=== PATIENT | female | born 1945 | race Caucasian/White ===

== ENCOUNTER 2019-08-30 13:07 | Inpatient (IN) | payer OTHER ==
[~2019-08-30] VITALS: Ht 165.1 cm; Wt 40.8 kg
[2019-08-30 13:41] VITALS: BP_SYST 120
--- NOTE | 2019-08-30 14:43 | NUR ---
Patient to ER bed 03 to gown for evaluation. Side rails up.
--- NOTE | 2019-08-30 14:45 | NUR ---
pt bib her for SNF placement. Pt's is not able to take care of her any longer. Pt has hx of dementia. AAOx2. in stable condition
--- NOTE | 2019-08-30 15:00 | NUR ---
ER at bedside examining patient.
--- NOTE | 2019-08-30 15:45 | NUR ---
# 22 gauge angiocath placed to RAC. Use of asceptic technique. Opsite placed over site. Blood return noted. Blood for lab drawn from site. Flushed with 10 cc of normal saline. No evidence of infiltration noted. Patient tolerated well.
--- NOTE | 2019-08-30 16:21 | NUR ---
EKG done and given to
[2019-08-30 16:24] LABS: BILIRUBIN,URINE NEGATIVE (NEGATIVE); BLOOD, URINE 3+ (NEGATIVE); CLARITY/URINE CLOUDY (CLEAR); GLUCOSE,URINE NEGATIVE (NEGATIVE); KETONES,URINE NEGATIVE (NEGATIVE); LEUKOCYTE ESTERASE ,URINE 1+ (NEGATIVE); NITRITE, URINE NEGATIVE (NEGATIVE); PH,URINE 7.5 (5.0-8.0); PROTEIN URINE 2+ (NEGATIVE); UROBILINOGEN,URINE 0.2 (0.2-1.0)
[2019-08-30 16:29] LABS: COLOR,URINE YELLOW (YELLOW)
--- NOTE | 2019-08-30 16:30 | NUR ---
pt getting labs drawn at the bedside.
[2019-08-30 16:31] LABS: BASOPHILS % (AUTO) 0.3 % (0.0-2.0); EOSINOPHILS # (AUTO) 0.1 K/uL (0.0-0.4); EOSINOPHILS % (AUTO) 0.9 % (0.0-4.0); HEMATOCRIT 36.5 % (36-48); HEMOGLOBIN 11.9 g/dL (12.0-16.0); LYMPHOCYTES # (AUTO) 1.2 K/uL (1.0-5.5); LYMPHOCYTES % (AUTO) 19.3 % (20.5-51.5); MEAN CORPUSCULAR HEMOGLOBIN 33 pg (27-31); MEAN CORPUSCULAR HGB CONC 33 % (32-36); MEAN CORPUSCULAR VOLUME 100 fL (79.0-98.0); MONOCYTES # (AUTO) 0.6 K/uL (0.0-1.0); MONOCYTES % (AUTO) 9.7 % (1.7-9.3); NEUTROPHILS # (AUTO) 4.2 K/uL (1.8-7.7); NEUTROPHILS % (AUTO) 69.8 % (40.0-70.0); PLATELET COUNT (AUTO) 227 K/uL (130-430); RED BLOOD CELL COUNT(AUTO) 3.64 MIL/uL (4.2-6.2); RED CELL DISTRIBUTION WIDTH 15.7 % (9.0-15.0)
[2019-08-30 16:38] LABS: ANION GAP 11 (5-15); CALCIUM 8.8 mg/dL (8.4-11.0); CHLORIDE 105 mmol/L (98-107); CREATININE 1.07 mg/dL (0.55-1.30); GLUCOSE 117 mg/dL (70-99); POTASSIUM 3.5 mmol/L (3.5-5.1); SODIUM SERUM 142 mmol/L (136-145); UREA NITROGEN, BLOOD 20 mg/dL (8-21)
[2019-08-30 16:39] LABS: BACTERIA,URINE MODERATE /HPF (None Seen); RBC,URINE 50-80 /HPF (0-3)
[2019-08-30 16:40] LABS: MUCUS,URINE None Seen /LPF (None Seen)
[2019-08-30 16:42] LABS: PROTHROMBIN TIME 9.8 SECS (9.5-12.5)
[2019-08-30 16:44] LABS: ALANINE AMINOTRANSFERASE 19 U/L (12-78); ALBUMIN 3.4 g/dL (3.4-4.8); ASPARTATE AMINOTRANSFERASE 24 U/L (10-37); TOTAL BILIRUBIN 0.4 mg/dL (0.0-1.0)
[2019-08-30 16:45] LABS: ACETAMINOPHEN < 1 ug/mL (1-30); ALCOHOL, BLOOD < 3 mg/dL (<10)
[2019-08-30 16:48] LABS: BARBITURATE, URINE NEGATIVE (NEG <=200); BENZODIAZEPINE, URINE NEGATIVE (NEG <=150); CANNABINOID, URINE NEGATIVE (NEG <=50); COCAINE, URINE NEGATIVE (NEG <=150); METHAMPHETAMINES SCREEN,URINE NEGATIVE (NEG <=500); OPIATE, URINE NEGATIVE (NEG <=100); PHENCYCLIDINE SCREEN,URINE NEGATIVE (NEG <=25); UR TRICYCLIC ANTIDEPRESSANTS NEGATIVE (NEG <=300); URINE AMPHETAMINE NEGATIVE (NEG <=500); URINE METHADONE NEGATIVE (NEG <=200); URINE OXYCODONE SCREEN NEGATIVE (NEG <=100); URINE PROPOXYPHENE SCREEN NEGATIVE (NEG <=300)
--- NOTE | 2019-08-30 18:05 | NUR ---
pt will be admitted under the care of Dr. Lorenzana. Orders received.
--- NOTE | 2019-08-30 18:07 | NUR ---
called for a Med Surg bed.
--- NOTE | 2019-08-30 18:25 | NUR ---
Patient will be admitted to care of Dr. Lorenzana. Admitted to med surg unit. Will go to room 113-a. Belongings list completed. Complete and up to date summary report printed. SBAR report to be given at bedside with opportunity for questions. Report given to Stephanie BAPTISTE. IV is on the LAC 22g patent.
--- NOTE | 2019-08-30 18:31 | NUR ---
ADMISSION NOTE Received patient from ER via brian, received report from LANIE BAPTISTE. Patient admitted with diagnosis of ALTERED LEVEL OF CONCIOUSNESS. Patient oriented to hospital routine, call light, toileting and safety-patient verbalized understanding.
[2019-08-30] MEDS ORDERED: PREVAGEN PO (18:43)
[2019-08-30 18:45] VITALS: BP_SYST 157
--- NOTE | 2019-08-30 19:00 | NUR ---
CLOSING NOTE PT AWAKE AND ALERT. PT CONFUSED BUT VERBAL. IV INTACT AND PATENT, NO SIGNS OF INFILTRATION. PT ON ROOM AIR, NO ACUTE DISTRESS NOTED. CLEAR LUNGS. NORMOACTIVE BOWEL SOUNDS. ALL NEEDS MET. BED IN LOWEST AND LOCKED POSITION. AND FRIEND AT BEDSIDE. CALL LIGHT IN REACH. FALL AND ASPIRATION PRECAUTIONS IN PLACE. WILL ENDORSE TO NOC NURSE. Addendum: 08/30/19 at 1940 by Lissett Tang RN PT EATING DINNER, TOLERATING WELL. HOB ELEVATED. NO COUGHING NOTED.
[2019-08-30] MEDS ORDERED: ACETAMINOPHEN 650 MG/20.3 ML UDC GT PRN (19:15)
--- NOTE | 2019-08-30 19:26 | NUR ---
CONSULTATION PAGED/CALLED Reason for Consultation: ALTERED LEVEL OF CONSIOUSNESS Person Who was Notified: TIFFANIE Consulting Physician: / ONCALL Director Of [employer]s Specialty: PSYCH Ordering Physician:
--- NOTE | 2019-08-30 19:32 | NUR ---
CONSULTATION PAGED/CALLED Reason for Consultation: ALOC Person Who was Notified: TIFFANIE Consulting Physician: / ONCSAILAJA [employer] M[employer] Tester Specialty: NEURO Ordering Physician:
[2019-08-30 19:55] VITALS: BP_SYST 147
--- NOTE | 2019-08-30 19:55 | NUR ---
OPENING NOTES Pt alert, awake, oriented to name only. VSS, afebrile. No s/s distress noted. Assisted pt to the bathroom, steady gait. IV R. AC 22 clear and patent. Oriented pt in room and call light use, pt needs reinforcement. Bed low, locked, siderails up x3. Call light within reach. To monitor.
--- NOTE | 2019-08-30 21:30 | NUR ---
Rounds Pt awake and restless. Frequent orientation provided about surroundings and safety. Safety maintained. To monitor.
[2019-08-30 23:18] VITALS: BP_SYST 149
--- NOTE | 2019-08-31 00:20 | NUR ---
Rounds Pt awake, restless and walked out to the station. Oriented pt to place and time and encouraged pt to get some rest. Safety maintained. Bed low, locked, siderails up. To monitor.
--- NOTE | 2019-08-31 03:40 | NUR ---
Rounds Pt asleep no s/s distress noted. Call light within reach. Will continue to monitor.
--- NOTE | 2019-08-31 06:25 | NUR ---
Closing notes/IV restart Pt awake, alert, no s/s distress. IV on right AC pulled out. Re-started IV L. FA 20G via aseptic technique. Good blood return. Pt tolerated well. Call light within reach. Safety maintained. Bed low position, locked, siderails up x3. To endorse to AM nurse.
[2019-08-31 07:58] LABS: BASOPHILS % (AUTO) 0.5 % (0.0-2.0); EOSINOPHILS # (AUTO) 0.2 K/uL (0.0-0.4); EOSINOPHILS % (AUTO) 1.8 % (0.0-4.0); HEMATOCRIT 38.9 % (36-48); HEMOGLOBIN 12.8 g/dL (12.0-16.0); LYMPHOCYTES # (AUTO) 1.9 K/uL (1.0-5.5); LYMPHOCYTES % (AUTO) 19.8 % (20.5-51.5); MEAN CORPUSCULAR HEMOGLOBIN 33 pg (27-31); MEAN CORPUSCULAR HGB CONC 33 % (32-36); MEAN CORPUSCULAR VOLUME 101 fL (79.0-98.0); MONOCYTES # (AUTO) 0.6 K/uL (0.0-1.0); MONOCYTES % (AUTO) 6.6 % (1.7-9.3); NEUTROPHILS # (AUTO) 6.7 K/uL (1.8-7.7); NEUTROPHILS % (AUTO) 71.3 % (40.0-70.0); PLATELET COUNT (AUTO) 203 K/uL (130-430); RED BLOOD CELL COUNT(AUTO) 3.85 MIL/uL (4.2-6.2); RED CELL DISTRIBUTION WIDTH 15.7 % (9.0-15.0); WHITE BLOOD COUNT (AUTO) 9.5 K/uL (4.8-10.8)
[2019-08-31 08:00] VITALS: BP_SYST 143
--- NOTE | 2019-08-31 08:00 | NUR ---
PT AWAKE, BUT APPEARS TO BE PLEASANTLY CONFUSED. ON ROOM AIR. V/S STABLE. INSTRUCTED TO USE CALL LIGHT FOR NEEDS, BED LOCKED AT THE LOWEST POSITION WITH ALARM ON, WILL CONTINUE TO MONITOR.
[2019-08-31 08:36] LABS: ANION GAP 12 (5-15); CALCIUM 8.8 mg/dL (8.4-11.0); CHLORIDE 103 mmol/L (98-107); CREATININE 0.96 mg/dL (0.55-1.30); FREE T4 (FREE THYROXINE) 1.2 ng/dl (0.8-1.5); GLUCOSE 81 mg/dL (70-99); POTASSIUM 3.9 mmol/L (3.5-5.1); SODIUM SERUM 138 mmol/L (136-145); THYROID STIMULATING HORMONE 3.33 uIu/mL (0.36-3.74); UREA NITROGEN, BLOOD 19 mg/dL (8-21)
--- NOTE | 2019-08-31 10:12 | NUR ---
PATIENT IS SEEN ATTEMPTING TO WANDER INTO THE HALLWAY. SHE IS ESCORTED BACK TO BED.
--- NOTE | 2019-08-31 11:40 | NUR ---
PATIENT IS ASSESSED BY DR. SCHUMACHER.
[2019-08-31 12:21] VITALS: BP_SYST 127
--- NOTE | 2019-08-31 14:00 | NUR ---
at bedside. POC is discussed.
--- NOTE | 2019-08-31 16:15 | NUR ---
Patient attempts to ambulate. Patient is redirected back to the bed.
[2019-08-31 16:17] VITALS: BP_SYST 136
--- NOTE | 2019-08-31 18:20 | NUR ---
Patient has a small portion of the dinner, stating that she is not hungry
--- NOTE | 2019-08-31 19:40 | NUR ---
INITIAL NOTES PATIENT IS LAYING IN BED AND STABLE. NO S/S OF RESPIRATORY DISTRESS NOTED. PLAN OF CARE WAS DISCUSSED WITH PATIENT AT THIS TIME. PATIENT UNSUCCESSFULLY DEMONSTRATES USAGE OF CALL LIGHT AT THIS TIME. WILL CONTINUE TO MONITOR. FALL, SAFETY, ASPIRATION, AND RESPIRATORY PRECAUTIONS WILL BE IN PLACE THROUGHOUT THE SHIFT.
[2019-08-31 19:45] VITALS: BP_SYST 141
--- NOTE | 2019-08-31 21:40 | NUR ---
ROUNDING PATIENT AMBULATED TO THE RESTROOM AT THIS TIME. PATIENT TOLERATED WELL. NO S/S OF RESPIRATORY DISTRESS NOTED. PATIENT REPOSITION FOR COMFORT. BED IS LOCKED, ALARMED, AND AT THE LOWEST POSITION. WILL CONTINUE TO MONITOR.
--- NOTE | 2019-08-31 23:40 | NUR ---
ROUNDING PATIENT IS SLEEPING IN BED AND STABLE. NO S/S OF RESPIRATORY DISTRESS NOTED. CALL LIGHT IN REACH. BED IS LOCKED, ALARMED, AND AT THE LOWEST POSITION.
--- NOTE | 2019-09-01 02:00 | NUR ---
ROUNDING PATIENT IS SLEEPING IN BED AND STABLE. NO S/S OF RESPIRATORY DISTRESS NOTED. CALL LIGHT IN REACH. BED IS LOCKED, ALARMED,AND AT THE LOWEST POSITION.
--- NOTE | 2019-09-01 04:10 | NUR ---
ROUNDING PATIENT IS SLEEPING IN BED AND STABLE. NO S/S OF RESPIRATORY DISTRESS NOTED. CALL LIGHT IN REACH. BED IS LOCKED, ALARMED,AND AT THE LOWEST POSITION.
[2019-09-01 05:30] VITALS: BP_SYST 127
--- NOTE | 2019-09-01 06:17 | NUR ---
CLOSING NOTES PATIENT IS LAYING IN BED AND STABLE. NO S/S OF RESPIRATORY DISTRESS NOTED. CALL LIGHT IN REACH. BED IS LOCKED, ALARMED, AND AT THE LOWEST POSITION. FALL, SAFETY, ASPIRATION, AND RESPIRATORY PRECAUTIONS HAS BEEN IN PLACE THROUGHOUT THE SHIFT. WILL CONTINUE TO MONITOR UNTIL REPORT IS GIVEN TO AM NURSE BY BEDSIDE.
--- NOTE | 2019-09-01 06:46 | NUR ---
Nutrition Update Torsten Scale 17 noted. Pt admitted for ALOC Diet: Regular BMI: 15 kg/m2 RD to follow per nutrition care standards.
--- NOTE | 2019-09-01 08:00 | NUR ---
RECEIVED AWAKE AND VERY CONFUSED TO PLACE AND REASON FOR HOSP AND REORIENTED.NO C/O DISCOMFORT VSS.RESP EVEN AND UNLABORED TAKES DIET WELL CONTINUE TO MONITOR AND REORIENT PRN
[2019-09-01 12:30] VITALS: BP_SYST 142
[2019-09-01] MEDS ORDERED: cefTRIAXone 1 GM in D5W 50 ML IV SCH (13:30)
--- NOTE | 2019-09-01 13:46 | NUR ---
SS NOTES: MID[employer] ARCHITECT was referred by CM to see patient for DCPA. Pt is a 74 y/o female who came in via ED for ALOC, S/P fall. Pt appears to be well groomed, cooperative with normal mood. Speech was normal and average eye contact. Pt responds to name, but is not oriented to person, place, time or situation. Pt's thought process were loose, when asked about ADL's, pt responds about something not related. Pt states she lives with her and is dependent on her wheelchair to get around. Pt's spouse fixes meals for them and helps her with bathing. Pt lives in a one anahi home with 4 steps to get to the front door but has a ramp. Pt denies any history of mental health or substance use. [employer] ARCHITECT attempted to phone spouse, Dru for collateral; phone was busy. No other identified needs at this time, but [employer] ARCHITECT will remain available when needed.
--- NOTE | 2019-09-01 13:58 | NUR ---
Nutrition Assessment (short note d/t high patient load) Admit Dx: GÉNESIS Stack- JASE reviewed pt's current EMR including diet Hx, physician notes, nursing notes, pertinent labs/meds/procedures, care trends and care activity. RD Notification received for 14-23# wt loss in 3 months. Pt seen resting in bed, covered in blankets, reading a book. Pt is pleasant but does not seem able to provide any nutrition history. Appeared w/ poor concentration. Per RN notes, pt w/ cognitive deficits and is not eating much. Pt appeared emaciated, and may benefit from ONS for wt gain promotion and megace to stimulate appetite. No pressure injury noted, no open wounds. Education is not appropriate. Current Diet Order: Regular diet x 1 day Ht: 5'5/ 65 inches Wt: 90#/ 41 kg BMI: 15 kg/m2 (underweight) %IBW: 72 IBW: 125#/ 57 kg ESTIMATED NUTRITIONAL REQUIREMENTS CALORIES/DAY: 1230 kcal/day (30 kcal/kg CBW for gradual wt gain promotion) PROTEIN/DAY: 41-62 gm/day (1-1.5 gm/kg CBW for gradual wt gain promotion) FLUID/DAY: 1.2 l/day (30ml/kg CBW for maintenance) D: 1. Underweight r/t mental status AEB 72% IBW, BMI 15 kg/m2 and confusion. 2. Increased risk for malnutrition r/t chronic Dz AEB dementia and 14-23# wt loss in 3 months. I: Recommend: regular diet w/ Ensure Enlive TID. ONS will provide additional 1050 kcal and 60 gm protein daily. Recommend Megace to stimulate appetite. M: Monitor appetite and PO intake w/ goal of pt meeting at least 75% of estimated nutritional needs, labs trending WNL, normal GI function, skin integrity/wt maintenance. E: RD to F/U within 2-3 days JASE AGUILERA
--- NOTE | 2019-09-01 14:11 | NUR ---
Dietitian Recommendation Recommend: regular diet w/ Ensure Enlive TID. ONS will provide additional 1050 kcal and 60 gm protein daily. Recommend Megace to stimulate appetite. Please see Nutritional Assessment for details. JASE AGUILERA
--- NOTE | 2019-09-01 15:01 | NUR ---
Discharge Planning: [facility] has faxed dc planning order and packet to [facility] ([phone] f.[phone]). [facility] spoke with [facility] who states that pt's information is under review.
[2019-09-01 16:46] VITALS: BP_SYST 136
--- NOTE | 2019-09-01 18:45 | NUR ---
remains with periods of confusion as to reason for being in hospital and reoriented prn.no c/o pain and vss taking diet well and resp even and unlabored continue to monitor for safety.call rowe in place
--- NOTE | 2019-09-01 19:22 | NUR ---
report to night monitor rn given
--- NOTE | 2019-09-01 19:30 | NUR ---
Pt is resting quietly in bed and eating dinner. Pt's is visiting at the bedside. Pt denies pain or discomfort. Saline lock in LFA is without any signs of infiltration. Call light is with pt and bed alarm is on.
[2019-09-01 20:00] VITALS: BP_SYST 130
[2019-09-01] MEDS ORDERED: DONEPEZIL HCL 5 MG TABLET (ARICEPT) PO SCH (21:00)
--- NOTE | 2019-09-01 21:30 | NUR ---
Scheduled HS medication given po. No c/o pain or discomfort. Fall and safety precautions are in place.
--- NOTE | 2019-09-01 23:15 | NUR ---
Pt was seen wandering around in her room and was redirected to her bed. Pt is oriented to her name only. No c/o pain or discomfort. Fall and safety precautions are in place.
--- NOTE | 2019-09-02 01:00 | NUR ---
Pt is sleeping comfortably in bed. Fall and safety precautions are in place.
--- NOTE | 2019-09-02 03:22 | NUR ---
Pt is sleeping without any respiratory distress noted. Call light is with pt and bed alarm is on. Pt's room is across from Nurses' Station.
--- NOTE | 2019-09-02 05:38 | NUR ---
Pt is sleeping comfortably in bed. Saline lock is intact in LFA. Fall and safety precautions are in place.
--- NOTE | 2019-09-02 06:28 | NUR ---
Pt is awake and resting comfortably in bed. Saline lock is intact in LFA. Fall and safety precautions are in place. Will endorse to day shift nurse.
[2019-09-02 08:00] VITALS: BP_SYST 109
--- NOTE | 2019-09-02 10:41 | NUR ---
DC Planning: Received bed assignment from [facility] to [facility] , RN to report # [phone]. Trying to call spouse/Dru but phone line is busy. -- I will try again to notify [facility] acceptance and get agreeable for the transfer. --OLIVA Garcia made aware.
[2019-09-02 11:39] VITALS: BP_SYST 126
--- NOTE | 2019-09-02 12:07 | NUR ---
Spoke with [facility], explained that we do not have an order for them to take patient, patient will be discharged to [facility]. Spoke with Dru, the patients , he was ok with her being discharged within an hour to the facility. Per stephanie, the patient will be picked up by ambulance after lunch. Pt can be reached at [phone]. Ravinder BAPTISTE
[2019-09-02 12:36] VITALS: BP_SYST 104
--- NOTE | 2019-09-02 13:31 | NUR ---
Discharge Planning: DCP arrange transportation with [facility] ([phone]) 2:15pm P/U DCP made [facility] aware . Patient nurse at lunch.
== END 2019-09-02 14:20 | DRG 689 ==
LOC: SED 13:07 → STU 17:52 → SMU 18:31
PROVIDERS: ADMIT Internal Medicine; ATTEND Internal Medicine
DX: N39.0 Urinary tract infection, site not specified (principal); G93.41 Metabolic encephalopathy; F05 Delirium due to known physiological condition; D64.9 Anemia, unspecified; F03.90 Unspecified dementia, unspecified severity, without behavioral disturbance, psychotic disturbance, mood disturbance, and anxiety; R31.9 Hematuria, unspecified; Z79.899 Other long term (current) drug therapy
CPT/HCPCS: 36415; 70450-TC; 71045; 80048; 80053; 80307; 81000-TC; 82550-TC; 82607; 84439; 84443-TC; 84484; 85025; 85610-TC; 85730-TC; 86592; 87086; 93005; 99285; G0480; G0481; G0482; J0696; J7060

== ENCOUNTER 2022-03-26 18:22 | Inpatient (IN) | payer OTHER ==
[~2022-03-26] VITALS: Ht 170.2 cm; Wt 64.4 kg
[~2022-03-26 18:22] MED LIST: ACET325T PO; DOCU-144 PO; MEGE400O4 PO; PREVAGEN PO
[2022-03-26 18:25] VITALS: BP_SYST 162; BP_SYST 178
[2022-03-26] MEDS ORDERED: INSU100V42 (18:45)
[2022-03-26] MEDS ORDERED: ASCO500T20 PO (18:45)
[2022-03-26] MEDS ORDERED: BISA5TAB10 PR (18:45)
[2022-03-26] MEDS ORDERED: LOSA50TA3 PO (18:45)
[2022-03-26] MEDS ORDERED: SACC250C3 PO (18:45)
[2022-03-26] MEDS ORDERED: METR-154 PO (18:45)
[2022-03-26] MEDS ORDERED: UTI-STAT PO (18:45)
[2022-03-26] MEDS ORDERED: RIVA10TA PO (18:45)
[2022-03-26 19:19] LABS: BASOPHILS # (AUTO) 0.1 K/uL (0.0-0.2); BASOPHILS % (AUTO) 0.9 % (0.0-2.0); EOSINOPHILS # (AUTO) 0.3 K/uL (0.0-0.4); HEMATOCRIT 26.8 % (36-48); HEMOGLOBIN 8.9 g/dL (12.0-16.0); LYMPHOCYTES # (AUTO) 1.2 K/uL (1.0-5.5); LYMPHOCYTES % (AUTO) 12.1 % (20.5-51.5); MEAN CORPUSCULAR HEMOGLOBIN 31 pg (27-31); MEAN CORPUSCULAR HGB CONC 33 % (32-36); MEAN CORPUSCULAR VOLUME 94 fL (79.0-98.0); MONOCYTES # (AUTO) 0.6 K/uL (0.0-1.0); MONOCYTES % (AUTO) 6.3 % (1.7-9.3); NEUTROPHILS # (AUTO) 7.6 K/uL (1.8-7.7); NEUTROPHILS % (AUTO) 77.7 % (40.0-70.0); PLATELET COUNT (AUTO) 405 K/uL (130-430); RED BLOOD CELL COUNT(AUTO) 2.86 MIL/uL (4.2-6.2); RED CELL DISTRIBUTION WIDTH 16.3 % (9.0-15.0); WHITE BLOOD COUNT (AUTO) 9.7 K/uL (4.8-10.8)
[2022-03-26] MEDS ORDERED: cefTRIAXone 1 GM IVPB PREMIX 50 ML IV ONE (19:30)
[2022-03-26 19:40] LABS: ANION GAP 9 (5-15); CALCIUM 8.7 mg/dL (8.4-11.0); CHLORIDE 114 mmol/L (98-107); GLUCOSE 92 mg/dL (70-99); POTASSIUM 4.2 mmol/L (3.5-5.1); UREA NITROGEN, BLOOD 32 mg/dL (8-21)
[2022-03-26 19:40] LABS: BILIRUBIN,URINE NEGATIVE (NEGATIVE); BLOOD, URINE 3+ (NEGATIVE); CLARITY/URINE SL CLOUDY (CLEAR); COLOR,URINE YELLOW (YELLOW); GLUCOSE,URINE NEGATIVE (NEGATIVE); KETONES,URINE NEGATIVE (NEGATIVE); LEUKOCYTE ESTERASE ,URINE 3+ (NEGATIVE); NITRITE, URINE NEGATIVE (NEGATIVE); PROTEIN URINE 1+ (NEGATIVE); UROBILINOGEN,URINE 0.2 (0.2-1.0)
[2022-03-26 19:43] LABS: INR 1.2 (0.8-1.2); PROTHROMBIN TIME 12.7 SECS (9.5-12.5)
[2022-03-26 19:49] LABS: ALANINE AMINOTRANSFERASE 44 U/L (12-78); ALBUMIN 1.8 g/dL (3.4-4.8); ASPARTATE AMINOTRANSFERASE 37 U/L (10-37); LIPASE 98 U/L (73-393); TOTAL BILIRUBIN 0.1 mg/dL (0.0-1.0)
[2022-03-26] MEDS ORDERED: LABETALOL HCL 20 MG/4 ML CARTRIDGE IVP ONE (20:15)
[2022-03-26 20:20] LABS: BACTERIA,URINE None Seen /HPF (None Seen); RBC,URINE 80-100 /HPF (0-3); WBC,URINE >100 /HPF (0-3)
[2022-03-26 20:21] LABS: MUCUS,URINE None Seen /LPF (None Seen)
[2022-03-26] MEDS ORDERED: NS 500 ML IV ONE (21:15)
[2022-03-26] MEDS ORDERED: BISACODYL 5 MG TABLET.DR (DULCOLAX) PO PRN (21:30)
[2022-03-26] MEDS: NACL 0.9% 1,000 ML IV SCH (21:30)
[2022-03-26] MEDS ORDERED: LOSARTAN POTASSIUM 50 MG TABLET (COZAAR) PO SCH (21:30)
[2022-03-27 01:00] VITALS: BP_SYST 152
[2022-03-27 04:00] VITALS: BP_SYST 150
[2022-03-27 07:00] LABS: BASOPHILS % (AUTO) 0.4 % (0.0-2.0); EOSINOPHILS # (AUTO) 0.3 K/uL (0.0-0.4); EOSINOPHILS % (AUTO) 3.4 % (0.0-4.0); HEMATOCRIT 24.7 % (36-48); HEMOGLOBIN 8.5 g/dL (12.0-16.0); LYMPHOCYTES # (AUTO) 1.2 K/uL (1.0-5.5); LYMPHOCYTES % (AUTO) 12.2 % (20.5-51.5); MEAN CORPUSCULAR HEMOGLOBIN 32 pg (27-31); MEAN CORPUSCULAR HGB CONC 35 % (32-36); MEAN CORPUSCULAR VOLUME 94 fL (79.0-98.0); MONOCYTES # (AUTO) 0.6 K/uL (0.0-1.0); MONOCYTES % (AUTO) 6.6 % (1.7-9.3); NEUTROPHILS # (AUTO) 7.3 K/uL (1.8-7.7); NEUTROPHILS % (AUTO) 77.4 % (40.0-70.0); PLATELET COUNT (AUTO) 354 K/uL (130-430); RED BLOOD CELL COUNT(AUTO) 2.64 MIL/uL (4.2-6.2); RED CELL DISTRIBUTION WIDTH 15.9 % (9.0-15.0); WHITE BLOOD COUNT (AUTO) 9.4 K/uL (4.8-10.8)
[2022-03-27 08:10] LABS: ALANINE AMINOTRANSFERASE 36 U/L (12-78); ALBUMIN 1.7 g/dL (3.4-4.8); ANION GAP 10 (5-15); ASPARTATE AMINOTRANSFERASE 33 U/L (10-37); CALCIUM 8.6 mg/dL (8.4-11.0); CHLORIDE 117 mmol/L (98-107); CREATININE 1.69 mg/dL (0.55-1.30); GLUCOSE 84 mg/dL (70-99); POTASSIUM 4.2 mmol/L (3.5-5.1); TOTAL BILIRUBIN 0.2 mg/dL (0.0-1.0); UREA NITROGEN, BLOOD 30 mg/dL (8-21)
[2022-03-27] MEDS ORDERED: SACCHAROMYCES BOULARDII 250 MG CAPSULE (FLORASTOR) PO SCH (09:00)
[2022-03-27] MEDS ORDERED: cefTRIAXone 1 GM in D5W 50 ML IV SCH (09:00)
[2022-03-27] MEDS ORDERED: [UNRECOGNIZED DRUG - OTHER] PO SCH (09:00)
[2022-03-27] MEDS ORDERED: RIVAROXABAN 10 MG TABLET PO SCH (09:00)
[2022-03-27] MEDS ORDERED: ASCORBIC ACID 500 MG TABLET PO SCH (09:00)
[2022-03-27] MEDS ORDERED: MEGESTROL ACETATE 400 MG/10 ML UDC PO SCH (09:00)
[2022-03-27] MEDS: ASCORBIC ACID 500 MG TABLET PO SCH (09:16)
[2022-03-27] MEDS: LACTOBACILLUS RHAMNOSUS GG 1 CAP CAPSULE PO SCH ×2 (09:17→22:35)
[2022-03-27] MEDS: amLODIPine BESYLATE 5 MG TABLET PO SCH (09:17)
[2022-03-27] MEDS: metroNIDAZOLE 500 MG TABLET PO SCH ×2 (09:18→14:33)
[2022-03-27] MEDS: LOSARTAN POTASSIUM 50 MG TABLET (COZAAR) PO SCH ×2 (09:18→22:37)
[2022-03-27] MEDS: RIVAROXABAN 10 MG TABLET PO SCH (09:18)
[2022-03-27] MEDS: MEGESTROL ACETATE 400 MG/10 ML UDC PO SCH ×2 (09:20→22:36)
[2022-03-27] MEDS: DOCUSATE SODIUM 100 MG CAPSULE PO SCH ×2 (09:22→22:35)
[2022-03-27 11:30] VITALS: BP_SYST 141
[2022-03-27] MEDS: cefTRIAXone 1 GM in D5W 50 ML IV SCH (12:38)
[2022-03-27 15:53] VITALS: BP_SYST 151
[2022-03-27 20:00] VITALS: BP_SYST 158
[2022-03-27] MEDS: NACL 0.9% 1,000 ML IV SCH (22:39)
[2022-03-27] MEDS: metroNIDAZOLE 500 mg/NS 100 ML IV SCH (22:40)
[2022-03-28] VITALS: BP_SYST 154
[2022-03-28 04:26] VITALS: BP_SYST 125
[2022-03-28] MEDS: metroNIDAZOLE 500 mg/NS 100 ML IV SCH ×3 (05:19→22:18)
[2022-03-28 07:22] LABS: BASOPHILS % (AUTO) 0.3 % (0.0-2.0); EOSINOPHILS # (AUTO) 0.3 K/uL (0.0-0.4); EOSINOPHILS % (AUTO) 2.7 % (0.0-4.0); HEMATOCRIT 25.9 % (36-48); HEMOGLOBIN 9.2 g/dL (12.0-16.0); LYMPHOCYTES # (AUTO) 0.8 K/uL (1.0-5.5); LYMPHOCYTES % (AUTO) 8.4 % (20.5-51.5); MEAN CORPUSCULAR HEMOGLOBIN 33 pg (27-31); MEAN CORPUSCULAR HGB CONC 35 % (32-36); MEAN CORPUSCULAR VOLUME 93 fL (79.0-98.0); MONOCYTES # (AUTO) 0.6 K/uL (0.0-1.0); MONOCYTES % (AUTO) 6.3 % (1.7-9.3); NEUTROPHILS # (AUTO) 8.3 K/uL (1.8-7.7); NEUTROPHILS % (AUTO) 82.3 % (40.0-70.0); PLATELET COUNT (AUTO) 365 K/uL (130-430); RED BLOOD CELL COUNT(AUTO) 2.79 MIL/uL (4.2-6.2); RED CELL DISTRIBUTION WIDTH 15.9 % (9.0-15.0); WHITE BLOOD COUNT (AUTO) 10.1 K/uL (4.8-10.8)
[2022-03-28 07:36] LABS: ANION GAP 10 (5-15); CALCIUM 8.4 mg/dL (8.4-11.0); CHLORIDE 118 mmol/L (98-107); CREATININE 1.61 mg/dL (0.55-1.30); GLUCOSE 85 mg/dL (70-99); UREA NITROGEN, BLOOD 29 mg/dL (8-21)
[2022-03-28 08:00] VITALS: BP_SYST 128
[2022-03-28 09:00] LABS: TOTAL IRON BIND. CAPACITY 215 ug/dL (250-450)
[2022-03-28] MEDS: MEGESTROL ACETATE 400 MG/10 ML UDC PO SCH ×2 (09:12→22:17)
[2022-03-28] MEDS: DOCUSATE SODIUM 100 MG CAPSULE PO SCH ×2 (09:12→22:17)
[2022-03-28] MEDS: ASCORBIC ACID 500 MG TABLET PO SCH (09:13)
[2022-03-28] MEDS: amLODIPine BESYLATE 5 MG TABLET PO SCH (09:13)
[2022-03-28] MEDS: LACTOBACILLUS RHAMNOSUS GG 1 CAP CAPSULE PO SCH ×2 (09:13→22:19)
[2022-03-28] MEDS: cefTRIAXone 1 GM in D5W 50 ML IV SCH (09:14)
[2022-03-28] MEDS: RIVAROXABAN 10 MG TABLET PO SCH (09:14)
[2022-03-28] MEDS: LOSARTAN POTASSIUM 50 MG TABLET (COZAAR) PO SCH ×2 (09:14→22:17)
[2022-03-28 12:00] VITALS: BP_SYST 95
[2022-03-28] MEDS: NACL 0.9% 1,000 ML IV SCH ×2 (13:25→14:01)
[2022-03-28 16:00] VITALS: BP_SYST 105
[2022-03-28 20:00] VITALS: BP_SYST 158
[2022-03-29] VITALS (8 sets, daily range): BP systolic 102–175
[2022-03-29] MEDS ORDERED: hydrALAZINE HCL 20 MG/ML VIAL IVP PRN (03:00)
[2022-03-29] MEDS: NACL 0.9% 1,000 ML IV SCH ×2 (03:27→17:03)
[2022-03-29] MEDS: metroNIDAZOLE 500 mg/NS 100 ML IV SCH ×3 (05:36→21:06)
[2022-03-29 07:07] LABS: FOLATE (FOLIC ACID) 18.2 ng/mL (>3.0)
[2022-03-29] MEDS: MEGESTROL ACETATE 400 MG/10 ML UDC PO SCH ×2 (08:34→21:04)
[2022-03-29] MEDS: ASCORBIC ACID 500 MG TABLET PO SCH (08:35)
[2022-03-29] MEDS: LOSARTAN POTASSIUM 50 MG TABLET (COZAAR) PO SCH ×2 (08:35→21:05)
[2022-03-29] MEDS: LACTOBACILLUS RHAMNOSUS GG 1 CAP CAPSULE PO SCH ×2 (08:36→21:05)
[2022-03-29] MEDS: amLODIPine BESYLATE 5 MG TABLET PO SCH (08:36)
[2022-03-29] MEDS: RIVAROXABAN 10 MG TABLET PO SCH (08:37)
[2022-03-29] MEDS: DOCUSATE SODIUM 100 MG CAPSULE PO SCH ×2 (08:41→21:05)
[2022-03-29] MEDS: cefTRIAXone 1 GM in D5W 50 ML IV SCH (09:03)
[2022-03-30] VITALS (7 sets, daily range): BP systolic 110–170
[2022-03-30] MEDS: metroNIDAZOLE 500 mg/NS 100 ML IV SCH ×3 (05:34→22:00)
[2022-03-30 07:57] LABS: BASOPHILS % (AUTO) 0.4 % (0.0-2.0); EOSINOPHILS # (AUTO) 0.1 K/uL (0.0-0.4); EOSINOPHILS % (AUTO) 0.8 % (0.0-4.0); HEMATOCRIT 30.3 % (36-48); HEMOGLOBIN 10.2 g/dL (12.0-16.0); LYMPHOCYTES # (AUTO) 0.9 K/uL (1.0-5.5); LYMPHOCYTES % (AUTO) 7.4 % (20.5-51.5); MEAN CORPUSCULAR HEMOGLOBIN 31 pg (27-31); MEAN CORPUSCULAR HGB CONC 34 % (32-36); MEAN CORPUSCULAR VOLUME 93 fL (79.0-98.0); MONOCYTES # (AUTO) 0.6 K/uL (0.0-1.0); MONOCYTES % (AUTO) 5.3 % (1.7-9.3); NEUTROPHILS # (AUTO) 10.5 K/uL (1.8-7.7); NEUTROPHILS % (AUTO) 86.1 % (40.0-70.0); PLATELET COUNT (AUTO) 433 K/uL (130-430); RED BLOOD CELL COUNT(AUTO) 3.26 MIL/uL (4.2-6.2); RED CELL DISTRIBUTION WIDTH 16.5 % (9.0-15.0); WHITE BLOOD COUNT (AUTO) 12.1 K/uL (4.8-10.8)
[2022-03-30] MEDS: LOSARTAN POTASSIUM 50 MG TABLET (COZAAR) PO SCH ×2 (09:00→20:52)
[2022-03-30 09:44] LABS: ANION GAP 16 (5-15); CALCIUM 9.1 mg/dL (8.4-11.0); CHLORIDE 117 mmol/L (98-107); CREATININE 1.58 mg/dL (0.55-1.30); GLUCOSE 102 mg/dL (70-99); POTASSIUM 3.6 mmol/L (3.5-5.1); UREA NITROGEN, BLOOD 23 mg/dL (8-21)
[2022-03-30] MEDS: cefTRIAXone 1 GM in D5W 50 ML IV SCH (09:53)
[2022-03-30] MEDS: MEGESTROL ACETATE 400 MG/10 ML UDC PO SCH ×2 (09:53→20:51)
[2022-03-30] MEDS: DOCUSATE SODIUM 100 MG CAPSULE PO SCH ×2 (09:53→20:50)
[2022-03-30] MEDS: ASCORBIC ACID 500 MG TABLET PO SCH (09:54)
[2022-03-30] MEDS: LACTOBACILLUS RHAMNOSUS GG 1 CAP CAPSULE PO SCH ×2 (09:54→20:51)
[2022-03-30] MEDS: amLODIPine BESYLATE 5 MG TABLET PO SCH (09:54)
[2022-03-30] MEDS: RIVAROXABAN 10 MG TABLET PO SCH (09:55)
== END 2022-03-31 00:49 | DRG 70 ==
LOC: SED 18:22 → SMU 21:45
PROVIDERS: ADMIT Internal Medicine; ATTEND Internal Medicine
DX: G93.41 Metabolic encephalopathy (principal); E43 Unspecified severe protein-calorie malnutrition; N17.0 Acute kidney failure with tubular necrosis; N39.0 Urinary tract infection, site not specified; I16.0 Hypertensive urgency; E86.0 Dehydration; F03.90 Unspecified dementia, unspecified severity, without behavioral disturbance, psychotic disturbance, mood disturbance, and anxiety; D64.9 Anemia, unspecified; R13.10 Dysphagia, unspecified; E11.51 Type 2 diabetes mellitus with diabetic peripheral angiopathy without gangrene; Z20.822 Contact with and (suspected) exposure to COVID-19; I10 Essential (primary) hypertension; Z68.22 Body mass index [BMI] 22.0-22.9, adult
CPT/HCPCS: 36415; 36600; 70450-TC; 71045; 76376; 80048; 80053; 81000; 82607; 82728; 82746; 82803-TC; 83540; 83550; 83605; 83690; 83735; 83880; 84484; 85025; 85610-TC; 85730-TC; 87040; 87081; 87086; 93005; 96365; 96375; 99285; J0360; J0696; J3490; J7060

== ENCOUNTER 2022-04-03 17:57 | Inpatient (IN) | payer OTHER ==
[~2022-04-03] VITALS: Ht 170.2 cm; Wt 75.4 kg
[~2022-04-03 17:57] MED LIST changes: -ACET325T PO; +ASCO500T20 PO; +BISA5TAB10 PR; +ETOMIDATE 20 MG/ 10 ML VIAL (AMIDATE) ONE; +INSU100V42; +LOSA50TA3 PO; +METR-154 PO; -PREVAGEN PO; +RIVA10TA PO; +SACC250C3 PO; +SUCCINYLCHOLINE CHLORIDE 20 MG/ML(QUELICIN) ONE; +UTI-STAT PO
[2022-04-03 18:02] VITALS: BP_SYST 92
[2022-04-03] MEDS ORDERED: PIPERACILLIN/TAZO 3.375 GM in NS 50 ML IV ONE (18:30)
[2022-04-03] MEDS ORDERED: NACL 0.9% 1,000 ML IV ONE (18:30)
[2022-04-03] MEDS ORDERED: PIPERACILLIN/TAZOBACTAM 3.375 GM/VIAL (ZOSYN) IV ONE (18:41)
[2022-04-03] MEDS ORDERED: SUCCINYLCHOLINE CHLORIDE 20 MG/ML(QUELICIN) IVP ONE (18:45)
[2022-04-03] MEDS ORDERED: ETOMIDATE 20 MG/ 10 ML VIAL (AMIDATE) IVP ONE (18:45)
[2022-04-03] MEDS ORDERED: PROPOFOL DRIP 100 ML IV ONE ×2 (19:24→19:30)
[2022-04-03] MEDS ORDERED: MEROPENEM 1 GM IVPB PREMIX 50 ML IV ONE (19:30)
[2022-04-03] MEDS ORDERED: VANCOMYCIN HCL 1,000 MG in NS 250 ML IV ONE (19:30)
[2022-04-03 19:32] LABS: HEMATOCRIT 31.7 % (36-48); HEMOGLOBIN 9.6 g/dL (12.0-16.0); MEAN CORPUSCULAR HEMOGLOBIN 30 pg (27-31); MEAN CORPUSCULAR HGB CONC 30 % (32-36); MEAN CORPUSCULAR VOLUME 100 fL (79.0-98.0); PLATELET COUNT (AUTO) 417 K/uL (130-430); RED BLOOD CELL COUNT(AUTO) 3.18 MIL/uL (4.2-6.2); RED CELL DISTRIBUTION WIDTH 20.4 % (9.0-15.0); WHITE BLOOD COUNT (AUTO) 24.9 K/uL (4.8-10.8)
[2022-04-03 19:50] LABS: ANION GAP 12 (5-15); CALCIUM 9.4 mg/dL (8.4-11.0); GLUCOSE 134 mg/dL (70-99); UREA NITROGEN, BLOOD 42 mg/dL (8-21)
[2022-04-03 19:51] LABS: BAND % (MANUAL) 10 % (0-6); BASOPHILS % (MANUAL) 0 % (0-2); EOSINOPHILS % (MANUAL) 3 % (0-7); LYMPHOCYTES % (MANUAL) 24 % (20-46); METAMYELOCYTES % 1 % (0-0); MONOCYTES % (MANUAL) 3 % (0-11)
[2022-04-03 19:56] LABS: ALANINE AMINOTRANSFERASE 42 U/L (12-78); ALBUMIN 2.1 g/dL (3.4-4.8); ASPARTATE AMINOTRANSFERASE 49 U/L (10-37); TOTAL BILIRUBIN 0.3 mg/dL (0.0-1.0)
[2022-04-03 20:03] LABS: CHLORIDE 120 mmol/L (98-107)
[2022-04-03 20:05] LABS: POTASSIUM 6.3 mmol/L (3.5-5.1)
[2022-04-03] MEDS ORDERED: VANCOMYCIN HCL 1000 MG/VIAL IV ONE (20:06)
[2022-04-03] MEDS ORDERED: DEXTROSE 50% JECT 50 ML DISP.SYRIN IVP ONE (20:15)
[2022-04-03] MEDS ORDERED: INSULIN REGULAR, HUMAN 10 UNITS/0.1 ML, 3 ML VIAL IVP ONE (20:15)
[2022-04-03] MEDS ORDERED: SODIUM POLYSTYRENE SULFONATE 15 GM/60 ML UDBTL NG ONE (20:15)
[2022-04-03] MEDS ORDERED: MEROPENEM 1 GM VIAL IV ONE (20:54)
[2022-04-03 21:00] VITALS: BP_SYST 117
[2022-04-03 21:09] LABS: BILIRUBIN,URINE NEGATIVE (NEGATIVE); BLOOD, URINE 3+ (NEGATIVE); CLARITY/URINE CLOUDY (CLEAR); COLOR,URINE RED (YELLOW); GLUCOSE,URINE NEGATIVE (NEGATIVE); KETONES,URINE NEGATIVE (NEGATIVE); LEUKOCYTE ESTERASE ,URINE 3+ (NEGATIVE); NITRITE, URINE NEGATIVE (NEGATIVE); PROTEIN URINE 2+ (NEGATIVE); UROBILINOGEN,URINE 0.2 (0.2-1.0)
[2022-04-03 21:11] LABS: BACTERIA,URINE MODERATE /HPF (None Seen); MUCUS,URINE None Seen /LPF (None Seen); RBC,URINE >100 /HPF (0-3); WBC,URINE 80-100 /HPF (0-3)
[2022-04-03] MEDS ORDERED: D5/0.45 NS 1,000 ML IV SCH (21:15)
[2022-04-03 21:30] VITALS: BP_SYST 99
[2022-04-03] MEDS ORDERED: LevALBUTEROL HCL 1.25 MG/0.5 ML *CONC.* VIAL.NEB (XOPENEX CONC.) INH PRN (21:45)
[2022-04-03] MEDS ORDERED: ACETAMINOPHEN 650 MG/20.3 ML UDC NG PRN (21:45)
[2022-04-03] MEDS ORDERED: LORazepam 2 MG/ML VIAL IVP PRN (21:45)
[2022-04-03 22:00] VITALS: BP_SYST 105; BP_SYST 117
[2022-04-03 22:13] LABS: INR 1.1 (0.8-1.2); PROTHROMBIN TIME 11.3 SECS (9.5-12.5)
[2022-04-03 22:18] VITALS: BP_SYST 108
[2022-04-03] MEDS: methylPREDNISolone SOD SUCC/PF 62.5 MG/ML VIAL IVP SCH (22:22)
[2022-04-03 23:00] VITALS: BP_SYST 82
[2022-04-03] MEDS ORDERED: SODIUM BICARBONATE 8.4% JECT 50 MEQ/50 ML SYRINGE ONE (23:42)
[2022-04-03] MEDS ORDERED: SODIUM BICARBONATE 8.4% VIAL 50 MEQ/50 ML VIAL ONE (23:42)
[2022-04-03] MEDS ORDERED: SODIUM BICARBONATE 8.4% JECT 50 MEQ/50 ML SYRINGE IVP ONE (23:45)
[2022-04-03] MEDS: SODIUM BICARBONATE 8.4% JECT 150 MEQ in D5W 1,000 ML IVP SCH (23:53)
[2022-04-04] VITALS (29 sets, daily range): BP systolic 88–154
[2022-04-04] MEDS ORDERED: NOREPINEPHRINE 4 MG/4 ML VIAL IV ONE ×2 (00:03→06:43)
[2022-04-04] MEDS: LevALBUTEROL HCL 1.25 MG/0.5 ML *CONC.* VIAL.NEB (XOPENEX CONC.) INH SCH ×4 (01:57→19:34)
[2022-04-04] MEDS: NOREPINEPHRINE BITARTRATE 4 MG in NS 246 ML IV PRN (02:56)
[2022-04-04] MEDS: methylPREDNISolone SOD SUCC/PF 62.5 MG/ML VIAL IVP SCH ×4 (04:47→23:45)
[2022-04-04] MEDS ORDERED: MEROPENEM 1 GM VIAL IV ONE (05:59)
[2022-04-04] MEDS ORDERED: MEROPENEM 500 MG IVPB PREMIX 50 ML IV SCH (06:00)
[2022-04-04] MEDS: INSULIN REGULAR, HUMAN 100 UNITS/ML, 3 ML VIAL (humuLIN R) SUBCUT PRN ×3 (06:41→18:00)
[2022-04-04 06:53] LABS: ANION GAP 13 (5-15); CALCIUM 8.4 mg/dL (8.4-11.0); CHLORIDE 118 mmol/L (98-107); CREATININE 2.31 mg/dL (0.55-1.30); GLUCOSE 251 mg/dL (70-99); UREA NITROGEN, BLOOD 41 mg/dL (8-21)
[2022-04-04] MEDS: PROPOFOL DRIP 100 ML IV PRN (07:34)
[2022-04-04 08:59] LABS: HEMATOCRIT 28.5 % (36-48); HEMOGLOBIN 9.1 g/dL (12.0-16.0); MEAN CORPUSCULAR HEMOGLOBIN 31 pg (27-31); MEAN CORPUSCULAR HGB CONC 32 % (32-36); MEAN CORPUSCULAR VOLUME 96 fL (79.0-98.0); PLATELET COUNT (AUTO) 314 K/uL (130-430); RED BLOOD CELL COUNT(AUTO) 2.98 MIL/uL (4.2-6.2); RED CELL DISTRIBUTION WIDTH 18.7 % (9.0-15.0)
[2022-04-04] MEDS: SODIUM BICARBONATE 8.4% JECT 150 MEQ in D5W 1,000 ML IVP SCH ×2 (09:42→17:39)
[2022-04-04 10:27] LABS: WHITE BLOOD COUNT (AUTO) 44.9 K/uL (4.8-10.8)
[2022-04-04] MEDS ORDERED: POTASSIUM CHLORIDE 20 MEQ/PKT PACKET PO ONE (10:45)
[2022-04-04 13:43] LABS: BAND % (MANUAL) 20 % (0-6)
[2022-04-04 13:44] LABS: BASOPHILS % (MANUAL) 0 % (0-2); EOSINOPHILS % (MANUAL) 0 % (0-7); LYMPHOCYTES % (MANUAL) 5 % (20-46); METAMYELOCYTES % 1 % (0-0); MONOCYTES % (MANUAL) 7 % (0-11)
[2022-04-04] MEDS: PIPERACILLIN/TAZO 2.25G/DEX-IS 50 ML IV SCH ×2 (17:38→23:49)
[2022-04-04] MEDS: LINEZOLID 300 ML IV SCH (20:30)
[2022-04-04] MEDS: ENOXAPARIN SODIUM 30 MG/0.3 ML SYRINGE SUBCUT SCH (20:32)
[2022-04-05] VITALS (35 sets, daily range): BP systolic 76–154
[2022-04-05] MEDS: LevALBUTEROL HCL 1.25 MG/0.5 ML *CONC.* VIAL.NEB (XOPENEX CONC.) INH SCH ×4 (00:03→19:30)
[2022-04-05] MEDS: methylPREDNISolone SOD SUCC/PF 62.5 MG/ML VIAL IVP SCH ×4 (06:16→21:51)
[2022-04-05] MEDS: PIPERACILLIN/TAZO 2.25G/DEX-IS 50 ML IV SCH ×3 (06:16→17:21)
[2022-04-05 06:54] LABS: HEMATOCRIT 24.7 % (36-48); HEMOGLOBIN 8.2 g/dL (12.0-16.0); MEAN CORPUSCULAR HEMOGLOBIN 31 pg (27-31); MEAN CORPUSCULAR HGB CONC 33 % (32-36); MEAN CORPUSCULAR VOLUME 94 fL (79.0-98.0); PLATELET COUNT (AUTO) 202 K/uL (130-430); RED BLOOD CELL COUNT(AUTO) 2.63 MIL/uL (4.2-6.2); RED CELL DISTRIBUTION WIDTH 18.1 % (9.0-15.0)
[2022-04-05 07:17] LABS: ANION GAP 10 (5-15); CHLORIDE 111 mmol/L (98-107); GLUCOSE 174 mg/dL (70-99); UREA NITROGEN, BLOOD 43 mg/dL (8-21)
[2022-04-05 08:03] LABS: POTASSIUM 2.8 mmol/L (3.5-5.1)
[2022-04-05] MEDS: SODIUM BICARBONATE 8.4% JECT 150 MEQ in D5W 1,000 ML IVP SCH (08:38)
[2022-04-05] MEDS ORDERED: POTASSIUM CHLORIDE 40 MEQ in NS 250 ML IV ONE (08:45)
[2022-04-05] MEDS ORDERED: POTASSIUM CHLORIDE 20 MEQ/PKT PACKET NG ONE (08:45)
[2022-04-05] MEDS: LINEZOLID 300 ML IV SCH ×2 (08:51→21:52)
[2022-04-05 11:14] LABS: BAND % (MANUAL) 12 % (0-6); EOSINOPHILS % (MANUAL) 0 % (0-7); LYMPHOCYTES % (MANUAL) 2 % (20-46)
[2022-04-05 11:15] LABS: ATYPICAL LYMPHOCYTES % 0 % (0-0); BASOPHILS % (MANUAL) 0 % (0-2); MONOCYTES % (MANUAL) 1 % (0-11)
[2022-04-05] MEDS: INSULIN REGULAR, HUMAN 100 UNITS/ML, 3 ML VIAL (humuLIN R) SUBCUT PRN ×2 (13:11→17:43)
[2022-04-05] MEDS: 0.45% NACL 1,000 ML IV SCH (17:32)
[2022-04-05] MEDS ORDERED: VANCOMYCIN HCL 750 MG in NS 250 ML IV SCH (21:00)
[2022-04-05] MEDS: ENOXAPARIN SODIUM 30 MG/0.3 ML SYRINGE SUBCUT SCH (21:52)
[2022-04-06] VITALS (37 sets, daily range): BP systolic 68–198
[2022-04-06] MEDS: PIPERACILLIN/TAZO 2.25G/DEX-IS 50 ML IV SCH ×4 (00:09→17:35)
[2022-04-06] MEDS: LevALBUTEROL HCL 1.25 MG/0.5 ML *CONC.* VIAL.NEB (XOPENEX CONC.) INH SCH ×4 (00:56→19:36)
[2022-04-06] MEDS: methylPREDNISolone SOD SUCC/PF 62.5 MG/ML VIAL IVP SCH ×4 (04:02→21:03)
[2022-04-06] MEDS: 0.45% NACL 1,000 ML IV SCH ×2 (04:02→16:34)
[2022-04-06] MEDS: DOPamine PREMIX 250 ML IV PRN (05:21)
[2022-04-06] MEDS: PROPOFOL DRIP 100 ML IV PRN (06:16)
[2022-04-06 07:33] LABS: ALANINE AMINOTRANSFERASE 44 U/L (12-78); ALBUMIN 1.7 g/dL (3.4-4.8); ANION GAP 10 (5-15); ASPARTATE AMINOTRANSFERASE 70 U/L (10-37); CALCIUM 8.1 mg/dL (8.4-11.0); CHLORIDE 103 mmol/L (98-107); CREATININE 2.02 mg/dL (0.55-1.30); GLUCOSE 136 mg/dL (70-99); POTASSIUM 3.7 mmol/L (3.5-5.1); TOTAL BILIRUBIN 0.5 mg/dL (0.0-1.0); UREA NITROGEN, BLOOD 43 mg/dL (8-21)
[2022-04-06] MEDS: LINEZOLID 300 ML IV SCH ×2 (09:20→21:04)
[2022-04-06] MEDS: INSULIN REGULAR, HUMAN 100 UNITS/ML, 3 ML VIAL (humuLIN R) SUBCUT PRN (11:47)
[2022-04-06] MEDS: ENOXAPARIN SODIUM 30 MG/0.3 ML SYRINGE SUBCUT SCH (21:03)
[2022-04-07] VITALS (32 sets, daily range): BP systolic 76–152
[2022-04-07] MEDS: PIPERACILLIN/TAZO 2.25G/DEX-IS 50 ML IV SCH ×5 (00:05→23:26)
[2022-04-07] MEDS: INSULIN REGULAR, HUMAN 100 UNITS/ML, 3 ML VIAL (humuLIN R) SUBCUT PRN ×2 (00:06→23:31)
[2022-04-07] MEDS: LevALBUTEROL HCL 1.25 MG/0.5 ML *CONC.* VIAL.NEB (XOPENEX CONC.) INH SCH ×4 (01:40→19:36)
[2022-04-07] MEDS: methylPREDNISolone SOD SUCC/PF 62.5 MG/ML VIAL IVP SCH ×4 (03:18→21:03)
[2022-04-07] MEDS: DOPamine PREMIX 250 ML IV PRN (04:49)
[2022-04-07] MEDS: 0.45% NACL 1,000 ML IV SCH (06:27)
[2022-04-07] MEDS: LINEZOLID 300 ML IV SCH ×2 (08:13→20:12)
[2022-04-07 09:14] LABS: BASOPHILS % (AUTO) 0.1 % (0.0-2.0); HEMATOCRIT 24.6 % (36-48); LYMPHOCYTES # (AUTO) 0.7 K/uL (1.0-5.5); MEAN CORPUSCULAR VOLUME 94 fL (79.0-98.0); MONOCYTES # (AUTO) 0.3 K/uL (0.0-1.0); MONOCYTES % (AUTO) 2.3 % (1.7-9.3); NEUTROPHILS # (AUTO) 12.7 K/uL (1.8-7.7); NEUTROPHILS % (AUTO) 92.6 % (40.0-70.0); PLATELET COUNT (AUTO) 191 K/uL (130-430); RED BLOOD CELL COUNT(AUTO) 2.63 MIL/uL (4.2-6.2); RED CELL DISTRIBUTION WIDTH 17.8 % (9.0-15.0); WHITE BLOOD COUNT (AUTO) 13.8 K/uL (4.8-10.8)
[2022-04-07 09:35] LABS: ANION GAP 10 (5-15); CALCIUM 7.8 mg/dL (8.4-11.0); CHLORIDE 101 mmol/L (98-107); CREATININE 1.83 mg/dL (0.55-1.30); GLUCOSE 142 mg/dL (70-99); UREA NITROGEN, BLOOD 46 mg/dL (8-21)
[2022-04-07 09:40] LABS: ALANINE AMINOTRANSFERASE 38 U/L (12-78); ALBUMIN 1.1 g/dL (3.4-4.8); ASPARTATE AMINOTRANSFERASE 62 U/L (10-37); TOTAL BILIRUBIN 0.4 mg/dL (0.0-1.0)
[2022-04-07] MEDS ORDERED: POTASSIUM CHLORIDE 20 MEQ/PKT PACKET PO ONE ×2 (11:00→23:00)
[2022-04-07 11:15] LABS: CHOLESTEROL 136 mg/dL (<200); HDL CHOLESTEROL 40 mg/dL (>55); LDL CHOLESTEROL 82 mg/dL (<100); TRIGLYCERIDES 108 mg/dL (30-150)
[2022-04-07] MEDS ORDERED: NOREPINEPHRINE 4 MG/4 ML VIAL IV ONE (12:34)
[2022-04-07 12:43] LABS: HEMOGLOBIN 8.4 g/dL (12.0-16.0); MEAN CORPUSCULAR HEMOGLOBIN 31 pg (27-31); MEAN CORPUSCULAR HGB CONC 33 % (32-36)
[2022-04-07] MEDS: NOREPINEPHRINE BITARTRATE 4 MG in NS 246 ML IV PRN (13:53)
[2022-04-07] MEDS: ENOXAPARIN SODIUM 30 MG/0.3 ML SYRINGE SUBCUT SCH (20:12)
[2022-04-08] VITALS (29 sets, daily range): BP systolic 97–168
[2022-04-08] MEDS: LevALBUTEROL HCL 1.25 MG/0.5 ML *CONC.* VIAL.NEB (XOPENEX CONC.) INH SCH ×4 (01:12→19:55)
[2022-04-08] MEDS: 0.45% NACL 1,000 ML IV SCH ×2 (02:49→16:05)
[2022-04-08] MEDS ORDERED: POTASSIUM CHLORIDE 20 MEQ/PKT PACKET PO ONE (03:00)
[2022-04-08] MEDS: NOREPINEPHRINE BITARTRATE 4 MG in NS 246 ML IV PRN (03:36)
[2022-04-08] MEDS: methylPREDNISolone SOD SUCC/PF 62.5 MG/ML VIAL IVP SCH ×4 (03:39→21:45)
[2022-04-08] MEDS: PIPERACILLIN/TAZO 2.25G/DEX-IS 50 ML IV SCH (05:13)
[2022-04-08] MEDS: LINEZOLID 300 ML IV SCH ×2 (08:24→20:09)
[2022-04-08 10:55] LABS: BASOPHILS % (AUTO) 0.4 % (0.0-2.0); EOSINOPHILS % (AUTO) 0.1 % (0.0-4.0); HEMATOCRIT 26.4 % (36-48); MEAN CORPUSCULAR VOLUME 94 fL (79.0-98.0); MONOCYTES # (AUTO) 0.4 K/uL (0.0-1.0); MONOCYTES % (AUTO) 3.6 % (1.7-9.3); NEUTROPHILS # (AUTO) 10.8 K/uL (1.8-7.7); NEUTROPHILS % (AUTO) 87.9 % (40.0-70.0); PLATELET COUNT (AUTO) 161 K/uL (130-430); RED BLOOD CELL COUNT(AUTO) 2.83 MIL/uL (4.2-6.2); RED CELL DISTRIBUTION WIDTH 17.6 % (9.0-15.0); WHITE BLOOD COUNT (AUTO) 12.3 K/uL (4.8-10.8)
[2022-04-08 11:57] LABS: ANION GAP 12 (5-15); CALCIUM 7.7 mg/dL (8.4-11.0); CHLORIDE 101 mmol/L (98-107); CREATININE 1.88 mg/dL (0.55-1.30); GLUCOSE 191 mg/dL (70-99); POTASSIUM 3.6 mmol/L (3.5-5.1); UREA NITROGEN, BLOOD 54 mg/dL (8-21)
[2022-04-08] MEDS: CEFEPIME 2 GM in D5W 100 ML IV SCH (11:58)
[2022-04-08 12:04] LABS: ALANINE AMINOTRANSFERASE 55 U/L (12-78); ALBUMIN 1.3 g/dL (3.4-4.8); ASPARTATE AMINOTRANSFERASE 64 U/L (10-37); TOTAL BILIRUBIN 0.3 mg/dL (0.0-1.0)
[2022-04-08] MEDS: ENOXAPARIN SODIUM 30 MG/0.3 ML SYRINGE SUBCUT SCH (20:09)
[2022-04-09] VITALS (33 sets, daily range): BP systolic 87–203
[2022-04-09] MEDS: LevALBUTEROL HCL 1.25 MG/0.5 ML *CONC.* VIAL.NEB (XOPENEX CONC.) INH SCH ×4 (01:01→19:35)
[2022-04-09] MEDS: 0.45% NACL 1,000 ML IV SCH ×3 (01:50→14:57)
[2022-04-09] MEDS: methylPREDNISolone SOD SUCC/PF 62.5 MG/ML VIAL IVP SCH ×4 (03:25→21:04)
[2022-04-09 06:56] LABS: BASOPHILS % (AUTO) 0.1 % (0.0-2.0); EOSINOPHILS % (AUTO) 0.1 % (0.0-4.0); LYMPHOCYTES # (AUTO) 0.6 K/uL (1.0-5.5); MEAN CORPUSCULAR VOLUME 94 fL (79.0-98.0); MONOCYTES # (AUTO) 0.2 K/uL (0.0-1.0); NEUTROPHILS # (AUTO) 6.4 K/uL (1.8-7.7); NEUTROPHILS % (AUTO) 88.8 % (40.0-70.0); PLATELET COUNT (AUTO) 116 K/uL (130-430); RED BLOOD CELL COUNT(AUTO) 2.56 MIL/uL (4.2-6.2); RED CELL DISTRIBUTION WIDTH 17.5 % (9.0-15.0); WHITE BLOOD COUNT (AUTO) 7.2 K/uL (4.8-10.8)
[2022-04-09 07:12] LABS: ANION GAP 8 (5-15); CALCIUM 7.5 mg/dL (8.4-11.0); CHLORIDE 101 mmol/L (98-107); CREATININE 1.57 mg/dL (0.55-1.30); GLUCOSE 123 mg/dL (70-99); POTASSIUM 3.6 mmol/L (3.5-5.1); UREA NITROGEN, BLOOD 56 mg/dL (8-21)
[2022-04-09] MEDS: LINEZOLID 300 ML IV SCH ×2 (08:39→20:57)
[2022-04-09] MEDS: DOPamine PREMIX 250 ML IV PRN (11:31)
[2022-04-09] MEDS: CEFEPIME 2 GM in D5W 100 ML IV SCH (12:05)
[2022-04-09] MEDS: ENOXAPARIN SODIUM 30 MG/0.3 ML SYRINGE SUBCUT SCH (20:58)
[2022-04-10] VITALS (35 sets, daily range): BP systolic 91–159
[2022-04-10] MEDS: LevALBUTEROL HCL 1.25 MG/0.5 ML *CONC.* VIAL.NEB (XOPENEX CONC.) INH SCH ×4 (01:05→19:30)
[2022-04-10] MEDS: methylPREDNISolone SOD SUCC/PF 62.5 MG/ML VIAL IVP SCH ×4 (05:08→21:03)
[2022-04-10] MEDS ORDERED: THEOPHYLLINE ANHYDROUS 200 MG CAP.ER.24H PO ONE (07:15)
[2022-04-10 07:22] LABS: BASOPHILS % (AUTO) 0.1 % (0.0-2.0); EOSINOPHILS # (AUTO) 0.1 K/uL (0.0-0.4); EOSINOPHILS % (AUTO) 1.7 % (0.0-4.0); LYMPHOCYTES # (AUTO) 0.7 K/uL (1.0-5.5); LYMPHOCYTES % (AUTO) 11.1 % (20.5-51.5); MEAN CORPUSCULAR VOLUME 93 fL (79.0-98.0); MONOCYTES # (AUTO) 0.2 K/uL (0.0-1.0); MONOCYTES % (AUTO) 3.9 % (1.7-9.3); NEUTROPHILS # (AUTO) 5.1 K/uL (1.8-7.7); NEUTROPHILS % (AUTO) 83.2 % (40.0-70.0); PLATELET COUNT (AUTO) 147 K/uL (130-430); RED BLOOD CELL COUNT(AUTO) 2.21 MIL/uL (4.2-6.2); WHITE BLOOD COUNT (AUTO) 6.1 K/uL (4.8-10.8)
[2022-04-10 07:29] LABS: HEMATOCRIT 20.6 % (36-48)
[2022-04-10 07:31] LABS: ANION GAP 10 (5-15); CALCIUM 7.4 mg/dL (8.4-11.0); CHLORIDE 102 mmol/L (98-107); GLUCOSE 129 mg/dL (70-99); POTASSIUM 3.3 mmol/L (3.5-5.1); UREA NITROGEN, BLOOD 67 mg/dL (8-21)
[2022-04-10] MEDS: LINEZOLID 300 ML IV SCH ×2 (08:34→20:57)
[2022-04-10] MEDS: THEOPHYLLINE ANHYDROUS 200 MG CAP.ER.24H PO SCH ×3 (08:35→21:03)
[2022-04-10] MEDS ORDERED: POTASSIUM CHLORIDE 20 MEQ/PKT PACKET PO ONE (11:15)
[2022-04-10] MEDS: CEFEPIME 2 GM in D5W 100 ML IV SCH (12:22)
[2022-04-10] MEDS ORDERED: PANTOPRAZOLE SODIUM 40 MG/VIAL (PROTONIX) IVP ONE (14:15)
[2022-04-10] MEDS: PEG 400/HYPROMELLOSE/GLYCERIN 15 ML DROPS OP PRN (16:58)
[2022-04-10] MEDS ORDERED: DEXTROSE 50% JECT 50 ML DISP.SYRIN IVP PRN (17:00)
[2022-04-10] MEDS ORDERED: *TPN PER PHARMACY XX PRN (17:00)
[2022-04-10] MEDS: MENTHOL/ZINC OXIDE 113 GM OINT. TP PRN (17:01)
[2022-04-10] MEDS: 0.45% NACL 1,000 ML IV SCH ×2 (17:02→20:05)
[2022-04-10] MEDS: PANTOPRAZOLE SODIUM 40 MG/VIAL (PROTONIX) IVP SCH (20:57)
[2022-04-10] MEDS ORDERED: PANTOPRAZOLE SODIUM 40 MG/VIAL (PROTONIX) IVP SCH (21:00)
[2022-04-11] VITALS (34 sets, daily range): BP systolic 91–168
[2022-04-11] MEDS: INSULIN REGULAR, HUMAN 100 UNITS/ML, 3 ML VIAL (humuLIN R) SUBCUT PRN ×3 (00:03→12:53)
[2022-04-11] MEDS: LevALBUTEROL HCL 1.25 MG/0.5 ML *CONC.* VIAL.NEB (XOPENEX CONC.) INH SCH ×4 (01:00→19:30)
[2022-04-11] MEDS: DOPamine PREMIX 250 ML IV PRN (02:22)
[2022-04-11] MEDS: 0.45% NACL 1,000 ML IV SCH ×2 (04:53→14:24)
[2022-04-11] MEDS: methylPREDNISolone SOD SUCC/PF 62.5 MG/ML VIAL IVP SCH ×4 (04:54→21:25)
[2022-04-11] MEDS: THEOPHYLLINE ANHYDROUS 200 MG CAP.ER.24H PO SCH ×3 (05:35→21:23)
[2022-04-11 07:05] LABS: BASOPHILS % (AUTO) 0.4 % (0.0-2.0); EOSINOPHILS # (AUTO) 0.8 K/uL (0.0-0.4); EOSINOPHILS % (AUTO) 11.3 % (0.0-4.0); HEMATOCRIT 32.3 % (36-48); LYMPHOCYTES # (AUTO) 0.7 K/uL (1.0-5.5); LYMPHOCYTES % (AUTO) 9.5 % (20.5-51.5); MEAN CORPUSCULAR VOLUME 87 fL (79.0-98.0); MONOCYTES # (AUTO) 0.3 K/uL (0.0-1.0); MONOCYTES % (AUTO) 3.9 % (1.7-9.3); NEUTROPHILS # (AUTO) 5.2 K/uL (1.8-7.7); NEUTROPHILS % (AUTO) 74.9 % (40.0-70.0); PLATELET COUNT (AUTO) 272 K/uL (130-430); RED BLOOD CELL COUNT(AUTO) 3.71 MIL/uL (4.2-6.2); RED CELL DISTRIBUTION WIDTH 16.8 % (9.0-15.0)
[2022-04-11 07:50] LABS: ALANINE AMINOTRANSFERASE 82 U/L (12-78); ALBUMIN 1.2 g/dL (3.4-4.8); ANION GAP 11 (5-15); ASPARTATE AMINOTRANSFERASE 67 U/L (10-37); CALCIUM 7.4 mg/dL (8.4-11.0); CHLORIDE 101 mmol/L (98-107); CREATININE 1.13 mg/dL (0.55-1.30); GLUCOSE 150 mg/dL (70-99); PHOSPHORUS 3.1 mg/dL (2.7-4.5); TOTAL BILIRUBIN 0.5 mg/dL (0.0-1.0); UREA NITROGEN, BLOOD 68 mg/dL (8-21)
[2022-04-11 07:54] LABS: POTASSIUM 3.9 mmol/L (3.5-5.1)
[2022-04-11 09:51] LABS: TRIGLYCERIDES 125 mg/dL (30-150)
[2022-04-11] MEDS: PANTOPRAZOLE SODIUM 40 MG/VIAL (PROTONIX) IVP SCH ×2 (10:05→21:24)
[2022-04-11] MEDS: LINEZOLID 300 ML IV SCH ×2 (10:06→21:24)
[2022-04-11] MEDS: CEFEPIME 2 GM in D5W 100 ML IV SCH (12:30)
[2022-04-11] MEDS ORDERED: TPN CENTRAL 0.0001 ML, SODIUM ACETATE 40 MEQ, POTASSIUM CHLORIDE 20 MEQ, K PHOS 9 MM, M... IV SCH ×9 (21:00)
[2022-04-12] VITALS (35 sets, daily range): BP systolic 105–176
[2022-04-12] MEDS: INSULIN REGULAR, HUMAN 100 UNITS/ML, 3 ML VIAL (humuLIN R) SUBCUT PRN ×4 (00:03→17:26)
[2022-04-12] MEDS: 0.45% NACL 1,000 ML IV SCH ×3 (00:04→18:57)
[2022-04-12] MEDS: LevALBUTEROL HCL 1.25 MG/0.5 ML *CONC.* VIAL.NEB (XOPENEX CONC.) INH SCH ×4 (01:11→20:51)
[2022-04-12] MEDS: methylPREDNISolone SOD SUCC/PF 62.5 MG/ML VIAL IVP SCH ×4 (03:29→21:04)
[2022-04-12] MEDS: THEOPHYLLINE ANHYDROUS 200 MG CAP.ER.24H PO SCH ×3 (05:25→21:07)
[2022-04-12 06:57] LABS: ALANINE AMINOTRANSFERASE 120 U/L (12-78); ALBUMIN 1.4 g/dL (3.4-4.8); ANION GAP 13 (5-15); ASPARTATE AMINOTRANSFERASE 69 U/L (10-37); CALCIUM 7.2 mg/dL (8.4-11.0); CHLORIDE 101 mmol/L (98-107); CREATININE 1.17 mg/dL (0.55-1.30); GLUCOSE 190 mg/dL (70-99); PHOSPHORUS 2.6 mg/dL (2.7-4.5); POTASSIUM 3.4 mmol/L (3.5-5.1); TOTAL BILIRUBIN 0.4 mg/dL (0.0-1.0); UREA NITROGEN, BLOOD 61 mg/dL (8-21)
[2022-04-12] MEDS: PANTOPRAZOLE SODIUM 40 MG/VIAL (PROTONIX) IVP SCH ×2 (08:26→21:04)
[2022-04-12] MEDS: PEG 400/HYPROMELLOSE/GLYCERIN 15 ML DROPS OP PRN (08:43)
[2022-04-12] MEDS: LINEZOLID 300 ML IV SCH ×2 (09:11→21:08)
[2022-04-12] MEDS: CEFEPIME 2 GM in D5W 100 ML IV SCH (11:54)
[2022-04-12] MEDS ORDERED: SODIUM ACETATE IV SCH ×9 (21:00)
[2022-04-12] MEDS ORDERED: POTASSIUM ACETATE IV SCH ×9 (21:00)
[2022-04-12] MEDS ORDERED: K PHOS IV SCH ×9 (21:00)
[2022-04-12] MEDS ORDERED: [UNRECOGNIZED DRUG - OTHER] IV SCH ×9 (21:00)
[2022-04-12] MEDS ORDERED: TPN CENTRAL IV SCH ×9 (21:00)
[2022-04-13] VITALS (35 sets, daily range): BP systolic 87–173
[2022-04-13] MEDS: INSULIN REGULAR, HUMAN 100 UNITS/ML, 3 ML VIAL (humuLIN R) SUBCUT PRN ×4 (00:08→17:44)
[2022-04-13] MEDS: methylPREDNISolone SOD SUCC/PF 62.5 MG/ML VIAL IVP SCH ×4 (03:32→23:03)
[2022-04-13] MEDS: 0.45% NACL 1,000 ML IV SCH ×2 (04:02→17:32)
[2022-04-13] MEDS: LevALBUTEROL HCL 1.25 MG/0.5 ML *CONC.* VIAL.NEB (XOPENEX CONC.) INH SCH ×3 (05:10→13:25)
[2022-04-13] MEDS: THEOPHYLLINE ANHYDROUS 200 MG CAP.ER.24H PO SCH ×3 (05:25→23:03)
[2022-04-13 06:58] LABS: ALANINE AMINOTRANSFERASE 141 U/L (12-78); ALBUMIN 1.3 g/dL (3.4-4.8); ANION GAP 13 (5-15); ASPARTATE AMINOTRANSFERASE 63 U/L (10-37); CALCIUM 7.5 mg/dL (8.4-11.0); CHLORIDE 102 mmol/L (98-107); CREATININE 1.18 mg/dL (0.55-1.30); GLUCOSE 201 mg/dL (70-99); TOTAL BILIRUBIN 0.4 mg/dL (0.0-1.0); UREA NITROGEN, BLOOD 55 mg/dL (8-21)
[2022-04-13 07:05] LABS: BASOPHILS % (AUTO) 0.1 % (0.0-2.0); HEMATOCRIT 29.8 % (36-48); LYMPHOCYTES # (AUTO) 0.8 K/uL (1.0-5.5); LYMPHOCYTES % (AUTO) 9.4 % (20.5-51.5); MEAN CORPUSCULAR VOLUME 87 fL (79.0-98.0); MONOCYTES # (AUTO) 0.4 K/uL (0.0-1.0); MONOCYTES % (AUTO) 5.2 % (1.7-9.3); NEUTROPHILS # (AUTO) 7.4 K/uL (1.8-7.7); NEUTROPHILS % (AUTO) 85.3 % (40.0-70.0); PLATELET COUNT (AUTO) 151 K/uL (130-430); RED BLOOD CELL COUNT(AUTO) 3.42 MIL/uL (4.2-6.2); RED CELL DISTRIBUTION WIDTH 16.6 % (9.0-15.0); WHITE BLOOD COUNT (AUTO) 8.7 K/uL (4.8-10.8)
[2022-04-13] MEDS: PANTOPRAZOLE SODIUM 40 MG/VIAL (PROTONIX) IVP SCH ×2 (08:19→21:44)
[2022-04-13] MEDS: LINEZOLID 300 ML IV SCH ×2 (08:30→21:44)
[2022-04-13] MEDS ORDERED: POTASSIUM CHLORIDE 20 MEQ/PKT PACKET PO ONE (09:00)
[2022-04-13 09:05] LABS: PHOSPHORUS 2.9 mg/dL (2.7-4.5)
[2022-04-13] MEDS: CEFEPIME 2 GM in D5W 100 ML IV SCH (11:50)
[2022-04-13] MEDS ORDERED: TPN CENTRAL IV SCH ×9 (21:00)
[2022-04-13] MEDS ORDERED: K PHOS IV SCH ×9 (21:00)
[2022-04-13] MEDS ORDERED: [UNRECOGNIZED DRUG - OTHER] IV SCH ×9 (21:00)
[2022-04-13] MEDS ORDERED: SODIUM ACETATE IV SCH ×9 (21:00)
[2022-04-13] MEDS ORDERED: POTASSIUM ACETATE IV SCH ×9 (21:00)
[2022-04-13] MEDS: FAT EMULSIONS 250 ML IV SCH (21:47)
[2022-04-13] MEDS: hydrALAZINE HCL 20 MG/ML VIAL IVP PRN (23:56)
[2022-04-14] VITALS (38 sets, daily range): BP systolic 85–202
[2022-04-14] MEDS: INSULIN REGULAR, HUMAN 100 UNITS/ML, 3 ML VIAL (humuLIN R) SUBCUT PRN ×3 (01:09→11:58)
[2022-04-14] MEDS: 0.45% NACL 1,000 ML IV SCH ×3 (03:22→18:06)
[2022-04-14] MEDS: methylPREDNISolone SOD SUCC/PF 62.5 MG/ML VIAL IVP SCH ×4 (03:58→21:36)
[2022-04-14] MEDS: LevALBUTEROL HCL 1.25 MG/0.5 ML *CONC.* VIAL.NEB (XOPENEX CONC.) INH SCH ×4 (05:57→19:18)
[2022-04-14] MEDS: THEOPHYLLINE ANHYDROUS 200 MG CAP.ER.24H PO SCH ×3 (06:50→21:37)
[2022-04-14 07:21] LABS: ALANINE AMINOTRANSFERASE 195 U/L (12-78); ALBUMIN 1.6 g/dL (3.4-4.8); ANION GAP 12 (5-15); ASPARTATE AMINOTRANSFERASE 72 U/L (10-37); CALCIUM 7.4 mg/dL (8.4-11.0); CHLORIDE 99 mmol/L (98-107); CREATININE 1.11 mg/dL (0.55-1.30); GLUCOSE 236 mg/dL (70-99); POTASSIUM 4.1 mmol/L (3.5-5.1); TOTAL BILIRUBIN 0.6 mg/dL (0.0-1.0); UREA NITROGEN, BLOOD 48 mg/dL (8-21)
[2022-04-14] MEDS: hydrALAZINE HCL 20 MG/ML VIAL IVP PRN ×2 (07:44→21:35)
[2022-04-14] MEDS ORDERED: ROCURONIUM BROMIDE 10 MG/ML (ZEMURON) IV ONE (08:00)
[2022-04-14] MEDS ORDERED: SEVOFLURANE 15 MIN GAS INH ONE (08:00)
[2022-04-14] MEDS ORDERED: NS IRRIG SOLN 1000 ML IR ONE (08:00)
[2022-04-14] MEDS ORDERED: CEFAZOLIN 2 GM IVPB PREMIX 50 ML IV ONE (08:00)
[2022-04-14] MEDS ORDERED: NS 1000 ML IV.SOLN IV ONE (08:00)
[2022-04-14] MEDS: PANTOPRAZOLE SODIUM 40 MG/VIAL (PROTONIX) IVP SCH ×2 (10:10→21:26)
[2022-04-14] MEDS: LINEZOLID 300 ML IV SCH (10:10)
[2022-04-14] MEDS: CEFEPIME 2 GM in D5W 100 ML IV SCH (11:51)
[2022-04-14] MEDS ORDERED: NOREPINEPHRINE 4 MG/4 ML VIAL IV ONE (13:42)
[2022-04-14] MEDS ORDERED: SODIUM ACETATE IV SCH ×10 (21:00)
[2022-04-14] MEDS ORDERED: POTASSIUM ACETATE IV SCH ×10 (21:00)
[2022-04-14] MEDS ORDERED: [UNRECOGNIZED DRUG - OTHER] IV SCH ×10 (21:00)
[2022-04-14] MEDS ORDERED: K PHOS IV SCH ×10 (21:00)
[2022-04-14] MEDS ORDERED: TPN CENTRAL IV SCH ×10 (21:00)
[2022-04-14] MEDS: FAT EMULSIONS 250 ML IV SCH (21:30)
[2022-04-14] MEDS ORDERED: NALOXONE HCL 0.4 MG/ML AMP (NARCAN) IVP PRN (21:45)
[2022-04-14] MEDS ORDERED: HYDROmorphone 1 MG/ML INJ. CARTRIDGE IVP PRN (21:45)
[2022-04-15] VITALS (35 sets, daily range): BP systolic 86–163
[2022-04-15] MEDS: LevALBUTEROL HCL 1.25 MG/0.5 ML *CONC.* VIAL.NEB (XOPENEX CONC.) INH SCH ×4 (00:44→19:40)
[2022-04-15] MEDS: methylPREDNISolone SOD SUCC/PF 62.5 MG/ML VIAL IVP SCH ×4 (04:49→21:20)
[2022-04-15] MEDS: THEOPHYLLINE ANHYDROUS 200 MG CAP.ER.24H PO SCH ×3 (06:00→21:17)
[2022-04-15] MEDS: INSULIN REGULAR, HUMAN 100 UNITS/ML, 3 ML VIAL (humuLIN R) SUBCUT PRN (07:02)
[2022-04-15 07:20] LABS: BASOPHILS % (AUTO) 0.1 % (0.0-2.0); HEMATOCRIT 27.1 % (36-48); LYMPHOCYTES # (AUTO) 0.4 K/uL (1.0-5.5); LYMPHOCYTES % (AUTO) 3.7 % (20.5-51.5); MEAN CORPUSCULAR VOLUME 88 fL (79.0-98.0); MONOCYTES # (AUTO) 0.6 K/uL (0.0-1.0); MONOCYTES % (AUTO) 5.4 % (1.7-9.3); NEUTROPHILS # (AUTO) 10.9 K/uL (1.8-7.7); NEUTROPHILS % (AUTO) 90.8 % (40.0-70.0); PLATELET COUNT (AUTO) 114 K/uL (130-430); RED BLOOD CELL COUNT(AUTO) 3.08 MIL/uL (4.2-6.2); RED CELL DISTRIBUTION WIDTH 16.9 % (9.0-15.0)
[2022-04-15 08:04] LABS: ALANINE AMINOTRANSFERASE 148 U/L (12-78); ALBUMIN 1.4 g/dL (3.4-4.8); ANION GAP 11 (5-15); ASPARTATE AMINOTRANSFERASE 54 U/L (10-37); CALCIUM 7.5 mg/dL (8.4-11.0); CHLORIDE 99 mmol/L (98-107); CREATININE 1.25 mg/dL (0.55-1.30); GLUCOSE 219 mg/dL (70-99); PHOSPHORUS 3.9 mg/dL (2.7-4.5); TOTAL BILIRUBIN 0.4 mg/dL (0.0-1.0); UREA NITROGEN, BLOOD 56 mg/dL (8-21)
[2022-04-15] MEDS: 0.45% NACL 1,000 ML IV SCH (08:17)
[2022-04-15] MEDS: PANTOPRAZOLE SODIUM 40 MG/VIAL (PROTONIX) IVP SCH ×2 (10:00→21:20)
[2022-04-15] MEDS: CEFEPIME 2 GM in D5W 100 ML IV SCH (11:43)
[2022-04-15] MEDS: NACL 0.9% 1,000 ML IV SCH (11:45)
[2022-04-15 13:24] LABS: TRIGLYCERIDES 77 mg/dL (30-150)
[2022-04-15] MEDS ORDERED: MIDAZOLAM HCL 5 MG/5 ML VIAL ONE ×2 (16:15→16:34)
[2022-04-15] MEDS ORDERED: MEPERIDINE 100 MG INJ. 100 MG/ML VIAL ONE ×2 (16:15→16:33)
[2022-04-15] MEDS ORDERED: SODIUM ACETATE IV SCH ×10 (21:00)
[2022-04-15] MEDS ORDERED: [UNRECOGNIZED DRUG - OTHER] IV SCH ×10 (21:00)
[2022-04-15] MEDS ORDERED: K PHOS IV SCH ×10 (21:00)
[2022-04-15] MEDS ORDERED: TPN CENTRAL IV SCH ×10 (21:00)
[2022-04-15] MEDS ORDERED: POTASSIUM ACETATE IV SCH ×10 (21:00)
[2022-04-15] MEDS: FAT EMULSIONS 250 ML IV SCH (21:12)
[2022-04-16] VITALS (34 sets, daily range): BP systolic 90–168
[2022-04-16] MEDS: INSULIN REGULAR, HUMAN 100 UNITS/ML, 3 ML VIAL (humuLIN R) SUBCUT PRN ×4 (00:12→23:41)
[2022-04-16] MEDS: LevALBUTEROL HCL 1.25 MG/0.5 ML *CONC.* VIAL.NEB (XOPENEX CONC.) INH SCH ×4 (01:30→22:05)
[2022-04-16] MEDS: methylPREDNISolone SOD SUCC/PF 62.5 MG/ML VIAL IVP SCH ×4 (04:58→21:00)
[2022-04-16] MEDS: NACL 0.9% 1,000 ML IV SCH ×2 (04:59→20:48)
[2022-04-16] MEDS: THEOPHYLLINE ANHYDROUS 200 MG CAP.ER.24H PO SCH ×3 (05:01→21:29)
[2022-04-16 06:46] LABS: ALANINE AMINOTRANSFERASE 127 U/L (12-78); ALBUMIN 1.5 g/dL (3.4-4.8); ANION GAP 9 (5-15); ASPARTATE AMINOTRANSFERASE 55 U/L (10-37); CALCIUM 7.6 mg/dL (8.4-11.0); CHLORIDE 102 mmol/L (98-107); CREATININE 1.03 mg/dL (0.55-1.30); GLUCOSE 204 mg/dL (70-99); PHOSPHORUS 3.9 mg/dL (2.7-4.5); POTASSIUM 4.3 mmol/L (3.5-5.1); TOTAL BILIRUBIN 0.6 mg/dL (0.0-1.0); UREA NITROGEN, BLOOD 53 mg/dL (8-21)
[2022-04-16] MEDS: PANTOPRAZOLE SODIUM 40 MG/VIAL (PROTONIX) IVP SCH ×2 (09:05→20:48)
[2022-04-16] MEDS: CEFEPIME 2 GM in D5W 100 ML IV SCH (12:28)
[2022-04-16] MEDS: FAT EMULSIONS 250 ML IV SCH (20:50)
[2022-04-16] MEDS ORDERED: SODIUM ACETATE IV SCH ×10 (21:00)
[2022-04-16] MEDS ORDERED: [UNRECOGNIZED DRUG - OTHER] IV SCH ×10 (21:00)
[2022-04-16] MEDS ORDERED: SODIUM CHLORIDE IV SCH ×10 (21:00)
[2022-04-16] MEDS ORDERED: TPN CENTRAL IV SCH ×10 (21:00)
[2022-04-17] VITALS (30 sets, daily range): BP systolic 95–188
[2022-04-17] MEDS: methylPREDNISolone SOD SUCC/PF 62.5 MG/ML VIAL IVP SCH ×4 (03:10→21:31)
[2022-04-17] MEDS: LevALBUTEROL HCL 1.25 MG/0.5 ML *CONC.* VIAL.NEB (XOPENEX CONC.) INH SCH ×4 (04:12→19:26)
[2022-04-17] MEDS: THEOPHYLLINE ANHYDROUS 200 MG CAP.ER.24H PO SCH ×3 (05:29→21:30)
[2022-04-17] MEDS: INSULIN REGULAR, HUMAN 100 UNITS/ML, 3 ML VIAL (humuLIN R) SUBCUT PRN ×3 (05:41→17:52)
[2022-04-17 08:29] LABS: ALANINE AMINOTRANSFERASE 116 U/L (12-78); ALBUMIN 1.6 g/dL (3.4-4.8); ANION GAP 11 (5-15); ASPARTATE AMINOTRANSFERASE 63 U/L (10-37); CHLORIDE 102 mmol/L (98-107); GLUCOSE 172 mg/dL (70-99); PHOSPHORUS 3.6 mg/dL (2.7-4.5); TOTAL BILIRUBIN 0.5 mg/dL (0.0-1.0); UREA NITROGEN, BLOOD 49 mg/dL (8-21)
[2022-04-17 09:06] LABS: POTASSIUM 4.7 mmol/L (3.5-5.1)
[2022-04-17] MEDS: PANTOPRAZOLE SODIUM 40 MG/VIAL (PROTONIX) IVP SCH ×2 (09:26→21:27)
[2022-04-17 11:07] LABS: BASOPHILS % (AUTO) 0.2 % (0.0-2.0); HEMATOCRIT 25.8 % (36-48); LYMPHOCYTES # (AUTO) 0.3 K/uL (1.0-5.5); LYMPHOCYTES % (AUTO) 2.9 % (20.5-51.5); MEAN CORPUSCULAR VOLUME 88 fL (79.0-98.0); MONOCYTES # (AUTO) 0.7 K/uL (0.0-1.0); MONOCYTES % (AUTO) 5.9 % (1.7-9.3); NEUTROPHILS # (AUTO) 10.9 K/uL (1.8-7.7); PLATELET COUNT (AUTO) 100 K/uL (130-430); RED BLOOD CELL COUNT(AUTO) 2.94 MIL/uL (4.2-6.2); RED CELL DISTRIBUTION WIDTH 16.9 % (9.0-15.0)
[2022-04-17] MEDS: CEFEPIME 2 GM in D5W 100 ML IV SCH (12:13)
[2022-04-17] MEDS: NACL 0.9% 1,000 ML IV SCH (14:22)
[2022-04-17] MEDS ORDERED: SODIUM CHLORIDE IV SCH ×10 (21:00)
[2022-04-17] MEDS ORDERED: SODIUM ACETATE IV SCH ×10 (21:00)
[2022-04-17] MEDS ORDERED: TPN CENTRAL IV SCH ×10 (21:00)
[2022-04-17] MEDS ORDERED: [UNRECOGNIZED DRUG - OTHER] IV SCH ×10 (21:00)
[2022-04-18] VITALS (25 sets, daily range): BP systolic 92–175
[2022-04-18] MEDS: LevALBUTEROL HCL 1.25 MG/0.5 ML *CONC.* VIAL.NEB (XOPENEX CONC.) INH SCH ×4 (00:36→19:32)
[2022-04-18] MEDS: methylPREDNISolone SOD SUCC/PF 62.5 MG/ML VIAL IVP SCH ×4 (03:38→21:15)
[2022-04-18] MEDS: THEOPHYLLINE ANHYDROUS 200 MG CAP.ER.24H PO SCH ×3 (06:00→21:15)
[2022-04-18] MEDS: NACL 0.9% 1,000 ML IV SCH ×2 (06:25→22:12)
[2022-04-18] MEDS: PANTOPRAZOLE SODIUM 40 MG/VIAL (PROTONIX) IVP SCH ×2 (09:10→20:35)
[2022-04-18] MEDS: hydrALAZINE HCL 20 MG/ML VIAL IVP PRN (09:11)
[2022-04-18 09:46] LABS: BASOPHILS % (AUTO) 0.1 % (0.0-2.0); HEMATOCRIT 24.3 % (36-48); LYMPHOCYTES # (AUTO) 0.6 K/uL (1.0-5.5); LYMPHOCYTES % (AUTO) 3.5 % (20.5-51.5); MEAN CORPUSCULAR VOLUME 88 fL (79.0-98.0); MONOCYTES # (AUTO) 1.1 K/uL (0.0-1.0); MONOCYTES % (AUTO) 6.7 % (1.7-9.3); NEUTROPHILS # (AUTO) 15.3 K/uL (1.8-7.7); NEUTROPHILS % (AUTO) 89.7 % (40.0-70.0); PLATELET COUNT (AUTO) 133 K/uL (130-430); RED BLOOD CELL COUNT(AUTO) 2.76 MIL/uL (4.2-6.2); RED CELL DISTRIBUTION WIDTH 16.2 % (9.0-15.0)
[2022-04-18 10:09] LABS: ANION GAP 8 (5-15); CHLORIDE 108 mmol/L (98-107); CREATININE 0.79 mg/dL (0.55-1.30); GLUCOSE 138 mg/dL (70-99); UREA NITROGEN, BLOOD 49 mg/dL (8-21)
[2022-04-18] MEDS: CEFEPIME 2 GM in D5W 100 ML IV SCH (20:37)
[2022-04-18] MEDS: INSULIN REGULAR, HUMAN 100 UNITS/ML, 3 ML VIAL (humuLIN R) SUBCUT PRN (23:54)
[2022-04-19] VITALS (36 sets, daily range): BP systolic 86–193
[2022-04-19] MEDS: LevALBUTEROL HCL 1.25 MG/0.5 ML *CONC.* VIAL.NEB (XOPENEX CONC.) INH SCH ×4 (00:38→22:01)
[2022-04-19] MEDS: methylPREDNISolone SOD SUCC/PF 62.5 MG/ML VIAL IVP SCH ×2 (03:37→09:13)
[2022-04-19] MEDS: THEOPHYLLINE ANHYDROUS 200 MG CAP.ER.24H PO SCH ×2 (05:25→13:32)
[2022-04-19] MEDS: PANTOPRAZOLE SODIUM 40 MG/VIAL (PROTONIX) IVP SCH ×2 (08:29→20:45)
[2022-04-19] MEDS: CEFEPIME 2 GM in D5W 100 ML IV SCH ×2 (08:29→20:40)
[2022-04-19] MEDS: hydrALAZINE HCL 20 MG/ML VIAL IVP PRN ×2 (10:16→23:30)
[2022-04-19 11:33] LABS: BASOPHILS % (AUTO) 0.1 % (0.0-2.0); LYMPHOCYTES # (AUTO) 0.5 K/uL (1.0-5.5); LYMPHOCYTES % (AUTO) 4.5 % (20.5-51.5); MEAN CORPUSCULAR VOLUME 88 fL (79.0-98.0); MONOCYTES # (AUTO) 0.6 K/uL (0.0-1.0); MONOCYTES % (AUTO) 5.4 % (1.7-9.3); NEUTROPHILS # (AUTO) 10.3 K/uL (1.8-7.7); PLATELET COUNT (AUTO) 133 K/uL (130-430); RED BLOOD CELL COUNT(AUTO) 2.44 MIL/uL (4.2-6.2); RED CELL DISTRIBUTION WIDTH 16.6 % (9.0-15.0); WHITE BLOOD COUNT (AUTO) 11.4 K/uL (4.8-10.8)
[2022-04-19 11:45] LABS: HEMATOCRIT 21.5 % (36-48)
[2022-04-19 11:48] LABS: ALANINE AMINOTRANSFERASE 165 U/L (12-78); ALBUMIN 1.2 g/dL (3.4-4.8); ANION GAP 8 (5-15); ASPARTATE AMINOTRANSFERASE 71 U/L (10-37); CALCIUM 7.9 mg/dL (8.4-11.0); CHLORIDE 110 mmol/L (98-107); CREATININE 0.97 mg/dL (0.55-1.30); GLUCOSE 167 mg/dL (70-99); TOTAL BILIRUBIN 0.3 mg/dL (0.0-1.0); UREA NITROGEN, BLOOD 52 mg/dL (8-21)
[2022-04-19] MEDS: NACL 0.9% 1,000 ML IV SCH (15:02)
[2022-04-19] MEDS: MENTHOL/ZINC OXIDE 113 GM OINT. TP PRN (20:26)
[2022-04-19] MEDS: PEG 400/HYPROMELLOSE/GLYCERIN 15 ML DROPS OP PRN (20:26)
[2022-04-19] MEDS: METHYLPREDNISOLONE SOD SUCC 40 MG/ML VIAL IVP SCH (20:40)
[2022-04-20] VITALS (21 sets, daily range): BP systolic 94–139
[2022-04-20] MEDS: THEOPHYLLINE ANHYDROUS 200 MG CAP.ER.24H PO SCH ×3 (00:29→14:00)
[2022-04-20] MEDS: NACL 0.9% 1,000 ML IV SCH (06:29)
[2022-04-20 07:01] LABS: ALANINE AMINOTRANSFERASE 148 U/L (12-78); ALBUMIN 1.1 g/dL (3.4-4.8); ANION GAP 7 (5-15); ASPARTATE AMINOTRANSFERASE 60 U/L (10-37); CALCIUM 7.8 mg/dL (8.4-11.0); CHLORIDE 112 mmol/L (98-107); CREATININE 0.86 mg/dL (0.55-1.30); GLUCOSE 177 mg/dL (70-99); POTASSIUM 3.9 mmol/L (3.5-5.1); TOTAL BILIRUBIN 0.3 mg/dL (0.0-1.0); UREA NITROGEN, BLOOD 51 mg/dL (8-21)
[2022-04-20] MEDS: LevALBUTEROL HCL 1.25 MG/0.5 ML *CONC.* VIAL.NEB (XOPENEX CONC.) INH SCH (07:14)
[2022-04-20 07:25] LABS: BASOPHILS % (AUTO) 0.1 % (0.0-2.0); EOSINOPHILS % (AUTO) 0.1 % (0.0-4.0); LYMPHOCYTES # (AUTO) 0.5 K/uL (1.0-5.5); LYMPHOCYTES % (AUTO) 3.6 % (20.5-51.5); MEAN CORPUSCULAR VOLUME 90 fL (79.0-98.0); MONOCYTES # (AUTO) 0.6 K/uL (0.0-1.0); MONOCYTES % (AUTO) 4.4 % (1.7-9.3); NEUTROPHILS # (AUTO) 13.6 K/uL (1.8-7.7); NEUTROPHILS % (AUTO) 91.8 % (40.0-70.0); PLATELET COUNT (AUTO) 132 K/uL (130-430); RED BLOOD CELL COUNT(AUTO) 2.31 MIL/uL (4.2-6.2); WHITE BLOOD COUNT (AUTO) 14.8 K/uL (4.8-10.8)
[2022-04-20 07:26] LABS: TOTAL IRON BIND. CAPACITY 202 ug/dL (250-450)
[2022-04-20 08:43] LABS: HEMATOCRIT 20.7 % (36-48)
[2022-04-20] MEDS: METHYLPREDNISOLONE SOD SUCC 40 MG/ML VIAL IVP SCH (10:14)
[2022-04-20] MEDS: CEFEPIME 2 GM in D5W 100 ML IV SCH (10:14)
[2022-04-20] MEDS: PANTOPRAZOLE SODIUM 40 MG/VIAL (PROTONIX) IVP SCH (10:14)
[2022-04-21 10:07] LABS: FOLATE (FOLIC ACID) 9.1 ng/mL (>3.0)
== END 2022-04-20 19:00 | DRG 870 ==
LOC: SED 17:57 → SIC 21:04
PROVIDERS: ADMIT Family Medicine; ATTEND Family Medicine
PROC: 5A1955Z Respiratory Ventilation, Greater than 96 Consecutive Hours (ICD-10-PCS; principal; 2022-04-03)
PROC: 0BH17EZ Insertion of Endotracheal Airway into Trachea, Via Natural or Artificial Opening (ICD-10-PCS; 2022-04-03)
PROC: 30233N1 Transfusion of Nonautologous Red Blood Cells into Peripheral Vein, Percutaneous Approach (ICD-10-PCS; 2022-04-10)
PROC: 0DH63UZ Insertion of Feeding Device into Stomach, Percutaneous Approach (ICD-10-PCS; 2022-04-15)
PROC: 0DB68ZX Excision of Stomach, Via Natural or Artificial Opening Endoscopic, Diagnostic (ICD-10-PCS; 2022-04-15)
DX: A41.9 Sepsis, unspecified organism (principal); J69.0 Pneumonitis due to inhalation of food and vomit; E43 Unspecified severe protein-calorie malnutrition; I46.9 Cardiac arrest, cause unspecified; J96.01 Acute respiratory failure with hypoxia; R65.21 Severe sepsis with septic shock; K25.4 Chronic or unspecified gastric ulcer with hemorrhage; K29.71 Gastritis, unspecified, with bleeding; E87.2 Acidosis; G93.1 Anoxic brain damage, not elsewhere classified; I42.9 Cardiomyopathy, unspecified; N39.0 Urinary tract infection, site not specified; Z16.21 Resistance to vancomycin; B95.2 Enterococcus as the cause of diseases classified elsewhere; D64.9 Anemia, unspecified; E11.51 Type 2 diabetes mellitus with diabetic peripheral angiopathy without gangrene; F03.90 Unspecified dementia, unspecified severity, without behavioral disturbance, psychotic disturbance, mood disturbance, and anxiety; E11.22 Type 2 diabetes mellitus with diabetic chronic kidney disease; I12.9 Hypertensive chronic kidney disease with stage 1 through stage 4 chronic kidney disease, or unspecified chronic kidney disease; E86.0 Dehydration; K44.9 Diaphragmatic hernia without obstruction or gangrene; N18.9 Chronic kidney disease, unspecified; R13.10 Dysphagia, unspecified; Z89.512 Acquired absence of left leg below knee; Z68.26 Body mass index [BMI] 26.0-26.9, adult
CPT/HCPCS: 36415; 36600; 43239; 43246; 71045; 80048; 80053; 80061; 81000; 82607; 82728; 82746; 82803-TC; 82962; 83540; 83550; 83605; 83735; 83880; 84100; 84132; 84443; 84478; 85007; 85025; 85027; 85610-TC; 85730-TC; 86886; 86900; 86901; 86920; 87040; 87070-TC; 87081; 87086; 87186-TC; 87205-TC; 93005; 93306; 94002; 94003; 94640; 94760; 95816; 96365; 96366; 96375; 99285; C9113; J0330; J0360; J0690; J0692; J1030; J1170; J1265; J1650; J1815; J2020; J2060; J2175; J2185; J2250; J2543; J2704; J2930; J3370; J3475; J3480; J3490; J7030; J7050; J7060; J7131; J7612; P9021